=== PATIENT | male | born 1960 | race Caucasian/White ===

== ENCOUNTER → 2020-04-03 11:28 | Outpatient (BNVA) | payer MEDICAID, SELFPAY | PROVIDERS: Visit Provider Emergency Medicine | DX: J98.4 Other disorders of lung (principal); R53.83 Other fatigue; I10 Essential (primary) hypertension; F17.200 Nicotine dependence, unspecified, uncomplicated | CPT/HCPCS: 71046 ==

== ENCOUNTER 2020-04-03 13:16 | Emergency (ER) | payer MEDICAID, SELFPAY ==
[2020-04-03 13:39] VITALS: BP 154/92; PULSE 112; RESP 18; TEMP 37.1; O2SAT 95; BMI 25.8
--- NOTE | 2020-04-03 14:36 | ECG_ITS ---
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 Measurements Intervals [place] Rate: 109 P: 81 UT: 109 QRS: 50 QRSD: 89 T: 57 QT: 307 QTc: 413 Interpretive Statements SINUS TACHYCARDIA WITH SHORT UT INTERVAL MODERATE ST DEPRESSION [0.05+ mV ST DEPRESSION] No previous ECG available for comparison Electronically Signed On 04-03-2020 16:21:47 CDT by Patrick Young M.D. [email or web address] regional hospitalAmcom Softwarepromedica defiance regional hospitalHeadCase Humanufacturing/store/OM/[id number]
--- NOTE | 2020-04-03 14:48 | CTR_ITS ---
PROCEDURE INFORMATION: Exam: CT Angiography Chest With Contrast Exam date and time: 04/03/2020 3:30 PM Age: 59 years old Clinical indication: Abnormal findings; Abnormal radiologic exam of lung or chest; Patient HX: Abn cxr - lethargy - flu like symptoms; Additional info: Abnormal cxr TECHNIQUE: Imaging protocol: Computed tomographic angiography of the chest with intravenous contrast. 3D rendering (Not supervised by radiologist): MIP and/or 3D reconstructed images were created by the technologist. Radiation optimization: All CT scans at this facility use at least one of these dose optimization techniques: automated exposure control; mA and/or kV adjustment per patient size (includes targeted exams where dose is matched to clinical indication); or iterative reconstruction. Contrast material: OMNI 350; Contrast volume: 95 ml; Contrast route: INTRAVENOUS (IV); COMPARISON: CR XR chest 2V* [id number] 04/03/2020 11:39 AM RADIATION DOSE METRICS: Total DLP (mGy-cm): 599.4 FINDINGS: Pulmonary arteries: Normal. No pulmonary emboli. Aorta: Unremarkable. No aortic aneurysm. No aortic dissection. Lungs: There is right lower lobe endobronchial opacification. There is right upper, middle and lower lobe interstitial lung disease. The left lung is clear. Pleural space: There is a small right pleural effusion. No pneumothorax. Heart: Unremarkable. No cardiomegaly. No pericardial effusion. Mediastinal space: There is a right mediastinal mass measuring 9.8 x 4.9 cm. The mass extends to the free carinal and subcarinal mediastinum. There is right thoracic hilar adenopathy measuring approximately 3.9 x 2.5 cm. No associated calcification. Lymph nodes: See Mediastinal space finding. Bones/joints: Unremarkable. No acute fracture. Soft tissues: Unremarkable. CT/CT angio chest PE protcl [id number] IMPRESSION: There is a right mediastinal and right thoracic hilar mass consistent with malignancy. 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 There is a right pleural effusion which may be malignant.If there is desire for further evaluation, a PET scan or biopsy could be performed. Radiation Dose CTDIVOL = (mGy): DLP = 599.4 (mGy-cm)
--- NOTE | 2020-04-03 14:49 | W.ED.CHESTPA ---
HPI - Chest Pain General: Chief Complaint: Chest Pain Stated Complaint: SOB,NOT FEELING WELL Time Seen by Provider: 04/03/20 13:51 History of Present Illness: HPI narrative: 59-year-old male comes in flulike symptoms for the last month lethargic is not been seen during that time initially told me within later in the visit he told me he was seen at the [facility] today and then sent here. I did find a note in the chart he had some sinus tachycardia and there was some question of ST depression so he was sent to the emergency room. He denies any chest pain or tightness. He states this seemed all began about a month ago after he had an infected tooth that was extracted. He denied difficulty breathing is not had any orthopnea no chest pain no abdominal pain no vomiting or diarrhea no cough no rash no recent insect or tick bites. No exposure to anybody with COVID that he knows of after reviewed the chart and found that he had also been tested for COVID at [facility]. He was immediately placed on isolation precautions after this. MD complaint: other (Generalized malaise) Onset (ago): month(s) (1) Timing of current episode: episodic and still present Pain radiation: none Relieving factors: nothing Exacerbating factors: nothing Associated symptoms: Deny abdominal pain, diaphoresis, dyspnea, fever(s), leg edema, nausea, palpitations, sense of impending doom, syncope or vomiting Treatment prior to arrival: none Review of Systems Const: Denies: fever(s) or diaphoresis ENMT: Denies: throat pain, ear or mastoid pain, nasal discharge or nasal congestion Card: Denies: palpitations or syncope Resp: Denies: dyspnea GI: Denies: abdominal pain, nausea or vomiting : Denies: flank pain, dysuria, urinary frequency or urinary urgency Skin/Breast: Denies: rash or pruritus PFS ED PFSH: Medical History HTN (hypertension) Sinus tachycardia Smoking ST segment depression Family History Father CAD (coronary artery disease) Social History (Updated 04/06/20 @ 08:54 by Marquis Ramírez LPN) Smoking and tobacco status: current every day smoker cigarettes Packs smoked per day: 1 Years cigarettes smoked: 25 Quit status (tobacco): considering quitting Second hand smoke exposure: No Smoking risk assessment/counseling performed?: Yes Alcohol intake: never Lives independently: Yes Household members: none Marital status: Current occupational status: retired Current gender identity: Male Physical Exam Const: COMMON NORMALS: no acute distress GENERAL APPEARANCE: cooperative and comfortable ORIENTATION/CONSCIOUSNESS: Yes awake, Yes oriented to person, Yes oriented to place and Yes oriented to time HENMT: COMMON NORMALS: normocephalic, atraumatic, hearing grossly normal bilaterally, external ears normal, moist oral mucous membranes and oropharynx normal HEAD & SCALP: normocephalic and atraumatic EXTERNAL EAR: Yes external ears normal Eye: COMMON NORMALS: Equal, round and reactive pupils present, EOMs intact bilaterally, conjunctivae normal and no scleral icterus CONJUNCTIVA: Yes conjunctivae normal PUPIL: Yes Equal, round and reactive pupils present Neck/C-Spine: COMMON NORMALS: full ROM, no lymphadenopathy, supple and no JVD Resp: COMMON NORMALS: normal respiratory effort, No retractions, No use of accessory muscles and clear to auscultation bilaterally AUSCULTATION: clear to auscultation bilaterally Cardio: COMMON NORMALS: no JVD, regular rate, regular rhythm and No murmurs present (Cardio) RATE: regular rate RHYTHM: regular rhythm GI: COMMON NORMALS: Soft to palpation and No hepatosplenomegaly present AUSCULTATION: Yes normoactive bowel sounds PALPATION: Yes Soft to palpation, No Tenderness to palpation present (GI), No Guarding due to palpation present (GI) and Yes No hepatosplenomegaly present Extremity: COMMON NORMALS: normal to inspection, capillary refill normal, no clubbing, cyanosis or edema, no calf tenderness and no pedal edema Neuro: SENSORIUM/ORIENTATION: Yes oriented to person, Yes oriented to place and Yes oriented to time Skin: COMMON NORMALS: no rashes or lesions noted GENERAL SKIN EXAM: no rashes or lesions noted Course Vital Signs: Vital signs: Vital Signs Temperature 98.7 F 04/03/20 13:39 Pulse Rate 110 H 04/03/20 17:32 Respiratory Rate 15 04/03/20 17:32 Blood Pressure 158/75 04/03/20 17:32 Pulse Oximetry 97 04/03/20 17:32 MDM - Chest Pain MDM Narrative: Medical decision making narrative: Discussion the patient on the CT results the CT is highly suspicious for lung CA with a large mass in the right hilum. Discussed on the findings we will discharge him home with sleep aid additionally he is hypertensive start him on Toprol we will get him set up as soon as possible to see the plate and frame filter operator to get definitive diagnosis of this mass done. Was stressed to the patient that while this was suspicious for cancer there is no way to be certain until it actually biopsied. Lab Data: Labs: Lab Results 04/03/20 04/03/20 04/03/20 Range/Units 15:24 15:24 15:24 WBC 9.5 (4.0-10.0) 10^3/ uL RBC 4.55 (4.1-5.3) 10^6/u L Hgb 14.3 (11.7-16.6) g/dL Hct 43.0 (42.0-52.0) % MCV 94.5 H (80-94) fL MCH 31.4 (28.0-34.0) pg MCHC 33.3 (30.0-36.0) g/dL RDW 12.9 (12.1-15.1) % Plt Count 361 (130-400) 10^3/c mm MPV 9.0 (7.4-10.4) fL Neut % (Auto) 77.0 % Lymph % (Auto) 13.0 % Spink % (Auto) 8.6 % Eos % (Auto) 0.3 % Baso % (Auto) 0.7 % Neut # (Auto) 7.29 (1.8-7.7) 10^3/u L Lymph # (Auto) 1.2 (0.8-4.8) 10^3/u L Spink # (Auto) 0.8 (0.2-0.9) 10^3/u L Eos # (Auto) 0.0 (0.0-0.8) 10^3/u L Baso # (Auto) 0.1 (0.0-0.1) 10^3/u L Nucleated RBC % (a uto) 0 % Nucleated RBCs # 0.0 /100WBC Sodium 136 (136-145) mmol/L Potassium 4.3 (3.5-5.1) mmol/L Chloride 98 (98-107) mmol/L Carbon Dioxide 26 (22-29) mmol/L Anion Gap 16.3 (5-19) BUN 13 (8-23) mg/dL Creatinine 0.8 (0.7-1.2) mg/dL GFR Calculation 98.6 (90-130) mL/min Glucose 109 (65-115) mg/dL Calculated Osmolal ity 279 L (285-295) mOsm/k g Calcium 8.9 (8.5-10.5) mg/dL Total Bilirubin 0.2 (0.15-1.2) mg/dL AST 17 (0-40) U/L ALT 19 (0-41) U/L Alkaline Phosphata se 99 (40-130) IU/L Troponin T Baselin e 10 (0-15) ng/L C-Reactive Protein 50.3 H (0.0-4.9) mg/L Total Protein 7.2 (6.6-8.7) g/dL Albumin 4.2 (3.5-5.2) g/dL Globulin 3.0 (1.3-4.6) g/dL Discharge Plan Discharge Patient Disposition: Home Clinical Impression: Mass of right lung, HTN (hypertension) Condition: Stable Prescriptions: New Toprol XL 25 mg tablet extended release 24 hr 25 mg PO DAILY Qty: 30 RF: 0 Valium 5 mg tablet 5 mg PO .qhs PRN (Reason: prn sleep) Qty: 10 RF: 0 No Action atorvastatin [Lipitor] 20 mg tablet 20 mg PO DAILY Qty: 30 RF: 3 Bevespi Aerosphere 9-4.8 mcg HFA aerosol inhaler 2 puff INHALATION BID Qty: 10.7 RF: 3 Discharge Orders: Discharge Order (Routine); Ordered 04/03/20 Ordered By: Juan Pickett Discharge Diet: Usual diet Discharge Activity: Resume usual activity Activity Restrictions/Additional Instructions: Case management will call with an appointment for 1 of the plate and frame filter operator early next week. Discharge Date/Time: 04/03/20 17:34 Coding Level of Care Code ED Supervisory It Specialist for Yasmanig Fwd Exam Comprehensive
[2020-04-03 15:50] LABS: Basophils # 0.1 10^3/uL (0.0-0.1); Basophils % 0.7 %; Eosinophils % 0.3 %; Hemoglobin 14.3 g/dL (11.7-16.6); Lymphocytes # 1.2 10^3/uL (0.8-4.8); Mean Corpuscular HGB Conc 33.3 g/dL (30.0-36.0); Mean Corpuscular Hemoglobin 31.4 pg (28.0-34.0); Mean Corpuscular Volume 94.5 fL (80-94); Monocytes # 0.8 10^3/uL (0.2-0.9); Monocytes % 8.6 %; Neutrophils # 7.29 10^3/uL (1.8-7.7); Nucleated Red Blood Cells % 0 %; Platelet Count 361 10^3/cmm (130-400); Red Blood Count 4.55 10^6/uL (4.1-5.3); Red Cell Distribution Width 12.9 % (12.1-15.1); White Blood Count 9.5 10^3/uL (4.0-10.0)
[2020-04-03 15:58] LABS: Troponin(5th) Baseline 10 ng/L (0-15)
[2020-04-03 16:02] LABS: Alanine Aminotransferase 19 U/L (0-41); Albumin Level 4.2 g/dL (3.5-5.2); Alkaline Phosphatase 99 IU/L (40-130); Anion Gap 16.3 (5-19); Aspartate Amino Transferase 17 U/L (0-40); Blood Urea Nitrogen 13 mg/dL (8-23); C Reactive Protein 50.3 mg/L (0.0-4.9); Calcium 8.9 mg/dL (8.5-10.5); Carbon Dioxide 26 mmol/L (22-29); Chloride 98 mmol/L (98-107); Glomerular Filtration Rate 98.6 mL/min (90-130); Glucose 109 mg/dL (65-115); Osmolality Calculated 279 mOsm/kg (285-295); Potassium 4.3 mmol/L (3.5-5.1); Sodium 136 mmol/L (136-145); Total Bilirubin 0.2 mg/dL (0.15-1.2); Total Protein 7.2 g/dL (6.6-8.7)
[2020-04-03] MEDS: iohexol 350 mg/mL 100 mL Btl IV (16:28)
[2020-04-03 17:32] VITALS: BP 158/75; PULSE 110; RESP 15; O2SAT 97
--- NOTE | 2020-04-05 10:27 | DCPLANNER ---
manager supply had message to schedule a follow up appointment for patient with [facility], either Dr. Valencia or Dr. Poole. manager supply called [facility], spoke with Ashley. manager supply gave clinic patients information, a follow up appointment is scheduled for Monday, April 06, 2020 at 8:[address] Poole. manager supply called patient with appointment information.
--- NOTE | 2020-04-07 14:38 | DCPLANNER ---
manager pulmonary also had message to schedule a follow up appointment for patient for a echo cardiogram, and a followup with primary care physician. manager pulmonary faxed order to centralized scheduling, will call for appointment information. After echo is scheduled, briefcase sewer will schedule a follow up appointment at the [facility] for patient. manager pulmonary will also send patient the non profit financial controller applications for [facility] to fill out and turn back in.
--- NOTE | 2020-04-09 14:43 | DCPLANNER ---
Patient has a follow up appointment scheduled for April at 10:15. Centralized scheduling will call patient with appointment information. mobile product manager called [facility], patient has a follow up appointment scheduled for Sunday April 26, 2020 at 2:00. Clinic will call patient with appointment information.
--- NOTE | 2020-04-15 08:25 | DCPLANNER ---
Patient had a follow up appointment scheduled for 04.06.20 with [facility] - patient did attend the appointment.
--- NOTE | 2020-05-01 09:12 | DCPLANNER ---
Patient had an echo scheduled and he did not attend the echo. Patient had a followup appointment scheduled for 04.26.20 with primary care physician at [facility] - patient did attend appointment.
== END 2020-04-03 17:34 | disposition home or self-care (01) ==
PROVIDERS: Emergency Provider Family Medicine
DX: J98.4 Other disorders of lung (principal); I10 Essential (primary) hypertension; F17.210 Nicotine dependence, cigarettes, uncomplicated
CPT/HCPCS: 12345; 36415; 71275; 80053; 80061; 83880; 84443; 84484; 85025; 86140; 87635; 93005; 99283; 99284; G0103; Q9967

== ENCOUNTER → 2020-04-12 14:10 | Outpatient (BNVA) | payer OTHER, SELFPAY | PROVIDERS: Visit Provider Internal Medicine Pulmonary Disease | DX: Z20.828 Contact with and (suspected) exposure to other viral communicable diseases (principal) | CPT/HCPCS: 87635 ==

== ENCOUNTER 2020-04-16 05:49 | Day surgery (SDC) | payer MEDICAID, SELFPAY ==
[2020-04-13 08:44] VITALS: BMI 25.8
[2020-04-16] VITALS (8 sets, daily range): BP systolic 110–147; BP diastolic 76–97; PULSE 108–133; RESP 16–20; TEMP 36.8–36.9; O2SAT 92–98
--- NOTE | 2020-04-16 06:06 | ECG_ITS ---
[facility] Test Date: 2020-04-16 Pat Name: Soren Aaron Department: Room: Gender: Male Private Equity Analyst: : 1960 Requested By: Lennie Pradhan Order Number: [id number] Garber MD: George Puente M.D. Measurements Intervals [place] Rate: 125 P: 16 NJ: 108 QRS: 67 QRSD: 81 T: 57 QT: 288 QTc: 415 Interpretive Statements SINUS TACHYCARDIA WITH SHORT [place] INTERVAL Compared to ECG 04/03/2020 15:18:26 ST (T wave) deviation no longer present Electronically Signed On 04-16-2020 16:38:16 CDT by George Puente M.D. [email or web address] good samaritan hospitalnumares GmbH/store/OM/[id number]
--- NOTE | 2020-04-16 06:31 | P.ANESASSM_ITS ---
Pre-Anesthetic Assessment Pre-Anesthetic Assessment: Height/Weight: Height 1.73 m Weight 77.111 kg Temp Pulse Resp BP Pulse Ox 98.5 F 133 H 18 110/90 95 04/16/20 06:26 04/16/20 06:26 04/16/20 06:26 04/16/20 06:26 04/16/20 06:26 Preop Diagnosis: Suspected lung cancer Proposed Procedure: Operation Date: 04/16/20 07:00 Proposed Procedures p Ebus(Not Applicable) - Debra Valencia MD s POSS THORACENTESIS(Not Applicable) - Debra Valencia MD Familial anesthetic complications: No personal hx of anesthesia, no known family problems Was Beta Amanda taken within 24 hours: Yes Last intake: Intake Last Liquid Date 04/15/20 Last Liquid Time 18:00 Last Solid Date 04/15/20 Last Solid Time 18:00 Social: Social History: Tobacco and No alcohol Exam: Pre-Anes Outpt Exam: alert, oriented x 3, clear to auscultation bilaterally and regular rate & rhythm Airway: Cervical ROM: WNL MP: 2 Dentition: Other (missing) Pulmonary: Pulmonary: COPD and Sleep apnea Comments: lung mass (R hilum) CV/HEM: CV/HEM: CHF and HTN Comments: tachycardia asymptomatic ST segment depression on EKG in ER Metabolic: Metabolic: Hyperlipidemia Anesthetic Plan: ASA status: 3 Anesthesia: General Risk of > 500 ml bl ood loss (7ml/kg in children): No PFSH Anesthesia PFSH: Medical History (Updated 04/11/20 @ 00:00 by ) HTN (hypertension) Sinus tachycardia Smoking ST segment depression Family History Father CAD (coronary artery disease) Social History (Updated 04/06/20 @ 08:54 by Marquis Ramírez LPN) Smoking and tobacco status: current every day smoker cigarettes Packs smoked per day: 1 Years cigarettes smoked: 25 Quit status (tobacco): considering quitting Second hand smoke exposure: No Smoking risk assessment/counseling performed?: Yes Alcohol intake: never Lives independently: Yes Household members: none Marital status: Current occupational status: retired Current gender identity: Male Data Anesthesia Cardiac Studies: No Data to Display
--- NOTE | 2020-04-16 06:37 | W.PM.OPSFHP ---
Same Day Surgery H&P Indication for Procedure/HPI DATE OF PROCEDURE: April 16, 2020 CHIEF COMPLAINT/INDICATIONFOR SURGICAL PROCEDURE: Bronchoscopic evaluation for right hilar and mediastinal lung mass. PREOP DIAGNOSIS: Suspected lung cancer PLANNED PROCEDRUE: Bronchoscopy with inspection of the airway, possible endobronchial biopsies, bronchoalveolar lavage, endobronchial sound guided transbronchial needle aspiration of lymph nodes. Operation Date: 04/16/20 07:00 Proposed Procedures p Ebus(Not Applicable) - Debra Valencia MD s POSS THORACENTESIS(Not Applicable) - Debra Valencia MD This is a 59-year-old gentleman who was seen by my colleague in the office on April 06 after he was found to have right mediastinal and hilar mass on a CT scan of the chest on April 03. The patient has an extensive history of smoking and is a current smoker. He was found to be in sinus tachycardia in the office on April 03 and was eventually asked to go to the ED and get evaluated. He underwent a CT angiogram of the chest which revealed significant emphysema. There was no evidence of pulmonary embolism. The patient has a right hilar mass and right mediastinal mass measuring 9.8 x 4.9 cm. He also has right hilar lymphadenopathy and right-sided pleural effusion. There is also concern for lymphangitic spread of the cancer. Medications/Allergies* Allergies/Adverse Reactions Allergy/AdvReac Type Severity Reaction Status Date / Time No Known Allergies Allergy Verified 04/16/20 06:52 Pertinent History/Comorbid Conditions* Medical History (Updated 04/11/20 @ 00:00 by ) HTN (hypertension) Sinus tachycardia Smoking ST segment depression Family History (Updated 04/03/20 @ 12:04 by Iza Baig PATIENT SERVICE TECHNICIAN PST) CAD (coronary artery disease) Father Social History Smoking and tobacco status: current every day smoker cigarettes Packs smoked per day: 1 Years cigarettes smoked: 25 Quit status (tobacco): considering quitting Second hand smoke exposure: No Smoking risk assessment/counseling performed?: Yes Alcohol intake: never Lives independently: Yes Household members: none Marital status: Current occupational status: retired Current gender identity: Male Pertinent Exam Findings alert, oriented x 3, clear to auscultation bilaterally and regular rate & rhythm Recommendations Surgery/Procedure today Coding Level of Care Code Acute Mental Health Program Specialist for Catherine Anna
[2020-04-16] MEDS: midazolam 1 mg/mL INJ 2 mL 2 MG IVP (06:55)
[2020-04-16] MEDS: sodium chloride 0.9% 1,000 ML 30 ML IV (07:00)
[2020-04-16] MEDS: lidocaine 1% INJ 20 mL XX (07:16)
--- NOTE | 2020-04-16 07:49 | SUR.OPER ---
family updated of surgical status
--- NOTE | 2020-04-16 08:16 | PM.OP ---
Operative Report Date of procedure: April 16, 2020 Pre-op Diagnosis: Suspected lung cancer Post-op diagnosis: same Brief History: This is a 59-year-old gentleman with right hilar and mediastinal mass coming in for bronchoscopic evaluation. Procedure: Name of the procedure: Bronchoscopy with inspection of the airway, bronchoalveolar lavage, endobronchial biopsies, endobronchial ultrasound-guided transbronchial needle aspiration of lymph nodes and control of bleeding. Indication: Suspected lung cancer Anesthesia: General anesthesia. Local anesthesia: The livia in the right and left mainstem bronchi were anesthetized with 1% lidocaine, 3 mL. Description of the procedure: The procedure was explained to the patient and the consent was obtained. The patient was brought to the OR. The patient underwent endotracheal intubation for general anesthesia. Following induction of general anesthesia, the bronchoscope was advanced through the ET tube. The lower trachea appeared to be mildly erythematous, no endotracheal lesion was seen. The livia was splayed. The livia, the right and left mainstem bronchi are anesthetized with 1% lidocaine. In a systematic manner bilateral bronchial tree was then examined. The bronchoscope was advanced into the left mainstem bronchus. There was erythema and mucus. The left upper lobe, lingula and left lower lobe bronchi were examined up to the third subsegmental level and no endobronchial abnormalities were identified. The bronchoscope was then introduced into the right mainstem bronchus. The right upper lobe entrance appeared narrowed, the mucosa was irregular in the entrance of the right upper lobe segments. The right middle lobe and right lower lobe bronchi were examined up to the third subsegmental level and no abnormalities were identified. There was mucus throughout the lung. Bronchoalveolar lavage was obtained from the right upper lobe. Endobronchial biopsies were performed from the right upper lobe. Multiple samples are obtained. The endobronchial ultrasound was introduced through the ET tube. Mediastinal and hilar lymphadenopathy was identified with the ultrasound. Transbronchial needle aspiration was performed from 4R, 7 lymph nodes. Samples: 1. Bronchoalveolar lavage specimen was sent for cytology. 2. The endobronchial biopsies are sent for histopathology. 3. The transbronchial needle aspiration of the aforementioned lymph node groups were sent for cytology and histopathology. Complications: There was no immediate complications. The patient was extubated and brought to the PACU in stable condition.
--- NOTE | 2020-04-16 08:33 | SUR.OPER ---
ebus balloon removed intact
--- NOTE | 2020-04-16 09:24 | XR_ITS ---
WS: [id number] Portable AP upright chest, 04/16/2020 Clinical Data: post bronchoscopy Comparison: PA and lateral chest, 04/03/2020. Findings: The right lung shows increased opacity. The right pleural effusion has increased. The left lung remains clear. The heart size is not changed. No pneumothorax is noted. Monitor leads are on the chest wall. XR/XR chest 1V portable [id number] Impression: 1. Increase in right lung opacity with interstitial change throughout which may represent obstructive pneumonia from a right hilar mass. 2. Increase in right pleural effusion.
--- NOTE | 2020-04-16 09:40 | P.OP_ITS ---
Operative Report Date of procedure: April 16, 2020 Right side Thoracentesis Pre-op Diagnosis: Suspected lung cancer Procedure: Pulmonary & Critical Care Medicine Procedure - Thoracentesis Procedure: Thoracentesis Indication: right Pleural effusion Finance Vice President(s): Gil Gutierrez MD Consent: signed and placed in chart Anesthesia: 10 cc 1% lidocaine without epinephrine Description: right pleural effusion was localized using ultrasound guidance and the site was marked accordingly. After chlorhexidine skin prep, area was draped in a sterile manner. 1% lidocaine was used for local anesthesia. Thoracentesis catheter was then inserted into the pleural space with aspiration of 1000 cc of pleural fluid (120 cc sent for labs). Appearance was blood tinged. Ultrasound guidance used:yes to locate the area. EBL: 5 cc Complications: None CXR: no pneumothroax
--- NOTE | 2020-04-16 09:40 | PC.NURSE ---
A THORACENTESIS WAS PERFORMED AT BEDSIDE DURING RECOVERY PHASE II BY DR ADAM. CAROLINA OLIVO RN AND KATLYN HUTTON RN ASSISTED. 900ML OF FLUID REMOVED. SAMPLES SENT TO LAB AND PATHOLOGY. PT TOLERATED WELL.
--- NOTE | 2020-04-16 10:20 | ANE.PACU2 ---
Inpatient post-anesthesia follow up: Airway intact: Yes Vital signs: Temperature 98.2 F Pulse Rate 112 Respiratory Rate 18 Blood Pressure 129/86 Pulse Oximetry 95 Oxygen Delivery Me thod Room Air Oxygen Flow Rate 10 Fraction of Inspir ed Oxygen Hydration adequate: Yes Nausea and vomiting: No Pain level: 1 Mental status: Baseline
[2020-04-16 10:36] LABS: Body Fluid Polynuclear #Cells 0.669; Body Fluid WBC 1893 /uL; Monocytes # Body Fluid 1.224
[2020-04-16 11:29] LABS: Albumin Body Fluid 2.5 g/dL; Cholesterol Body Fluid 101 mg/dL (0-200); LDH Pleural Fluid 2329 U/L; Total Protein Pleural Fluid 4.2 g/dL; Triglycerides, Pleural Fluid 31 mg/dL
[2020-04-16 11:49] LABS: Apprearance, Body Fluid CLEAR; Color, Body Fluid YELLOW; PATH Referral YES
== END 2020-04-16 10:22 | disposition home or self-care (01) ==
PROVIDERS: Internal Medicine Pulmonary Disease; PCP Emergency Medicine; Visit Provider Internal Medicine Critical Care Medicine
PROC: BB4BZZZ Ultrasonography of Pleura (ICD-10-PCS; CPT 32554; principal; 2020-04-16 07:00)
DX: J90 Pleural effusion, not elsewhere classified (principal); J44.9 Chronic obstructive pulmonary disease, unspecified; G47.30 Sleep apnea, unspecified; I11.0 Hypertensive heart disease with heart failure; I50.9 Heart failure, unspecified; E78.5 Hyperlipidemia, unspecified; F17.210 Nicotine dependence, cigarettes, uncomplicated; Z82.49 Family history of ischemic heart disease and other diseases of the circulatory system
CPT/HCPCS: 32554; 12345; 31627; 31628; 71045; 80500; 82042; 82150; 82465; 82945; 83615; 83986; 84157; 84478; 87070; 87075; 87205; 88112; 88305; 89050; 93005; J1100; J2250; J2405; J2704; J2710; J3010; J3490; J7030

== ENCOUNTER 2020-04-20 09:51 | Outpatient (CLI) | payer MEDICAID, SELFPAY ==
--- NOTE | 2020-04-20 09:56 | XRR_ITS ---
PROCEDURE INFORMATION: Exam: XR Chest, 2 Views Exam date and time: 04/20/2020 10:12 AM Age: 59 years old Clinical indication: Shortness of breath; Prior surgery; Surgery type: Lung biopsy 4-6 weeks ago TECHNIQUE: Imaging protocol: XR of the chest Views: 2 views. COMPARISON: CR XR chest 1V portable [id number] 04/16/2020 9:42 AM FINDINGS: Lungs: Severe emphysema. Dense airspace consolidation right lower lobe and to a lesser degree in the right mid lung and upper lobe. Moderate to large right pleural effusion. Pleural space: See Lungs finding. Heart/Mediastinum: Unremarkable. No cardiomegaly. Bones/joints: Unremarkable. XR/XR chest 2V* [id number] IMPRESSION: Dense airspace consolidation right lower lobe and to a lesser degree in the right mid lung and upper lobe. Moderate to large right pleural effusion. Pleural effusion is progressive.
== END 2020-04-20 09:52 | disposition home or self-care (01) ==
LOC: RAD 09:55
PROVIDERS: PCP Emergency Medicine; Visit Provider Internal Medicine Critical Care Medicine
DX: R06.02 Shortness of breath (principal); J90 Pleural effusion, not elsewhere classified
CPT/HCPCS: 71046

== ENCOUNTER → 2020-04-21 09:42 | Outpatient (BNVA) | payer OTHER, SELFPAY | PROVIDERS: PCP Emergency Medicine; Visit Provider Internal Medicine Critical Care Medicine | DX: Z11.59 Encounter for screening for other viral diseases (principal) | CPT/HCPCS: 87635 ==

== ENCOUNTER 2020-04-23 09:15 | Inpatient (IN) | payer MEDICAID, SELFPAY ==
[2020-04-23 10:00] VITALS: BMI 25.5
--- NOTE | 2020-04-23 10:56 | ECG_ITS ---
[facility] Test Date: 2020-04-23 Pat Name: Soren Aaron Department: Room: 104 Gender: Male Flight Radio Officer: : 1960 Requested By: Jessi Vargas Order Number: [id number] Garber MD: Patrick Young M.D. Measurements Intervals [place] Rate: 108 P: 75 MD: 83 QRS: 55 QRSD: 84 T: 60 QT: 316 QTc: 424 Interpretive Statements SINUS TACHYCARDIA WITH SHORT MD INTERVAL ABNORMAL RHYTHM ECG Compared to ECG 04/16/2020 06:15:14 No significant changes Electronically Signed On 04-23-2020 20:40:12 CDT by Patrick Young M.D. [email or web address] [email or web address] Candy/store/[id number]
--- NOTE | 2020-04-23 10:56 | P.HP_ITS ---
Providers/Chief Complaint Admitting Physician: Jessi Vargas DO Primary Care Provider: GÓMEZ Pickens Chief Complaint: Infusion History of Present Illness Soren Aaron is a 59 year old male with a past medical history of CHF, COPD, hypertension and tobacco abuse that presented to the hospital today for direct admission due to recurrent pleural effusion. Patient had a prior thoracentesis last week and has continued to develop worsening effusion. He does have a right-sided lung mass measuring over 4 x 9 cm and is undergoing evaluation for malignancy. He was brought in by pulmonary service today for thoracentesis with plan for pleurodesis. Patient reported that his cough and sputum production has improved since being on the azithromycin and prednisone, reports that he has completed the course of azithromycin. He denies any recent fevers or chills, no exposure to anyone under investigation are positive for COVID-19. His own COVID test returned negative. Patient reports some dyspnea on exertion but at rest he denies any chest pain or shortness of breath. Review of Systems Const: Denies: fever(s) or chills Eyes: Denies: change in vision ENMT: Denies: nasal congestion Card: Reports: dyspnea on exertion; Denies: chest pain, palpitations or edema Resp: Reports: dyspnea and productive cough; Denies: hemoptysis GI: Denies: abdominal pain, nausea, vomiting, diarrhea, constipation, hematochezia or melena : Denies: dysuria or hematuria Musc: Denies: extremity pain or muscle cramps Skin/Breast: Denies: rash or new lesions Neuro: Denies: headache(s) or dizziness Psych: Denies: anxiety or depression Endo: Denies: polyuria or hot flashes Abhishek/Lymph: Denies: easy bruising or easy bleeding Medications/Allergies Home Medications Medication Instructions Recorded Confirmed Last Taken Type metoprolol succinate [Toprol XL] 25 mg PO DAILY #30 tab 04/03/20 04/23/20 04/23/20 06:00 Rx atorvastatin 20 mg tablet 20 mg PO DAILY #30 tab 04/06/20 04/23/20 04/23/20 06:00 Rx glycopyrrolate 9 mcg-formoterol 2 puff INHALATION BID #10.7 gm 04/08/20 04/23/20 1 Day Ago Rx 4.8 mcg HFA aerosol inhaler ~04/15/20 prednisone 20 mg tablet 40 mg PO DAILY 5 Days #10 tab 04/20/20 04/23/20 04/23/20 Rx ibuprofen 400 mg PO Q6H PRN 04/23/20 04/23/20 04/22/20 History Allergies Allergy/AdvReac Type Severity Reaction Status Date / Time No Known Allergies Allergy Verified 04/16/20 06:52 PFSH Acute PFSH: Medical History HTN (hypertension) Sinus tachycardia Smoking ST segment depression Surgical History (Updated 04/23/20 @ 11:08 by Jessi Vargas DO) History of bronchoscopy History of thoracentesis Right, performed on 04/16/2020 Family History Father CAD (coronary artery disease) Social History (Updated 04/23/20 @ 11:01 by Jessi Vargas DO) Smoking and tobacco status: current every day smoker cigarettes Packs smoked per day: 1 Years cigarettes smoked: 25 [ Other cigarette details: Reports he is decreased to 2 to 3 cigarettes/day, previously reported 1 pack/day ] Quit status (tobacco): considering quitting Second hand smoke exposure: No Smoking risk assessment/counseling performed?: Yes Alcohol intake: never Lives independently: Yes Household members: none Marital status: Current occupational status: retired Current gender identity: Male Vitals/I&O/Wt Weight last 48 hrs Weight 76.204 kg Physical Exam Const: COMMON NORMALS: patient oriented x3 and alert GENERAL APPEARANCE: cooperative ORIENTATION/CONSCIOUSNESS: Yes awake, Yes oriented to person, Yes oriented to place and Yes oriented to time HENMT: COMMON NORMALS: normocephalic and atraumatic HEAD & SCALP: normocephalic and atraumatic Eye: COMMON NORMALS: Equal, round and reactive pupils present PUPIL: Yes Equal, round and reactive pupils present Neck/C-Spine: COMMON NORMALS: supple GENERAL: Yes normal visual inspection Resp: AUSCULTATION: no wheezes OTHER: Very mild accessory muscle use, diminished breath sounds on the right chest, no appreciable wheezing or rhonchi Cardio: COMMON NORMALS: regular rhythm and No murmurs present (Cardio) RATE: tachycardic RHYTHM: regular rhythm GI: COMMON NORMALS: Soft to palpation and non-tender INSPECTION: No abdominal distension AUSCULTATION: Yes normoactive bowel sounds PALPATION: Yes Soft to palpation Extremity: COMMON NORMALS: no clubbing, cyanosis or edema and no calf tenderness Neuro: COMMON NORMALS: patient oriented x3, CN's II-XII intact bilaterally, moves all extremities and no focal motor deficits SENSORIUM/ORIENTATION: Yes alert, Yes oriented to person, Yes oriented to place and Yes oriented to time SPEECH: speech normal Psych: COMMON NORMALS: mental status grossly normal and cooperative Skin: COMMON NORMALS: no rashes or lesions noted GENERAL SKIN EXAM: no rashes or lesions noted Data CXR: I personally reviewed and interpreted this imaging study as follows: Radiologist's impression: Chest x-ray from 04/20/2020 FINDINGS: Lungs: Severe emphysema. Dense airspace consolidation right lower lobe and to a lesser degree in the right mid lung and upper lobe. Moderate to large right pleural effusion. Pleural space: See Lungs finding. Heart/Mediastinum: Unremarkable. No cardiomegaly. Bones/joints: Unremarkable. XR/XR chest 2V* [id number] IMPRESSION: Dense airspace consolidation right lower lobe and to a lesser degree in the right mid lung and upper lobe. Moderate to large right pleural effusion. Pleural effusion is progressive. A&P Assessment and plan (1) Recurrent pleural effusion on right: Recurrent pleural effusion on the right with plan for thoracentesis and pleurodesis today by pulmonology. Consultation to Dr. Gutierrez, appreciate recommendations and assistance in patient's care Status: Acute (2) Lung cancer: Status post thoracentesis and bronchoscopy with pathology report showing non-small cell carcinoma, favor adenocarcinoma Will require outpatient oncologic follow-up Status: Acute (3) COPD (chronic obstructive pulmonary disease): Just completed course of azithromycin, currently on prednisone burst treatment Respiratory therapy to assess and treat Oxygen per protocol Status: Acute Qualifiers: COPD type: unspecified COPD Qualified Code(s): J44.9 - Chronic obst ructive pulmonary disease, unspecified (4) HTN (hypertension): Continue home metoprolol Status: Acute (5) Smoking: Strongly encourage cessation Status: Acute (6) Sinus tachycardia: Continue on previously prescribed beta-daniela, continue monitoring on telemetry Status: Acute Additional A&P Information Plan for labs today including CBC, CMP, PT/INR Plan for EKG today due to sinus tachycardia DVT prophylaxis: SCDs, no pharmacologic prophylaxis due to planned procedure today Diet: N.p.o. CODE STATUS: Limited resuscitation, patient reports that he would not want to be on a mechanical ventilator, therefore DO NOT INTUBATE. Attestations Medical Necessity Statement*: Hospitalization due to concern for underlying lung malignancy with recurrent pleural effusion requiring thoracentesis and pleurodesis. 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
[2020-04-23 11:05] LABS: Glucose Point of Care 122 mg/dL (70-110)
[2020-04-23 11:12] VITALS: BP 126/80; PULSE 105; RESP 36; O2SAT 92
[2020-04-23 11:46] LABS: Basophils % 0.2 %; Eosinophils % 0.1 %; Hematocrit 41.4 % (42.0-52.0); Hemoglobin 13.2 g/dL (11.7-16.6); Lymphocytes # 0.5 10^3/uL (0.8-4.8); Lymphocytes % 4.6 %; Mean Corpuscular HGB Conc 31.9 g/dL (30.0-36.0); Mean Corpuscular Hemoglobin 31.1 pg (28.0-34.0); Mean Corpuscular Volume 97.4 fL (80-94); Mean Platelet Volume 8.9 fL (7.4-10.4); Monocytes # 0.5 10^3/uL (0.2-0.9); Monocytes % 4.6 %; Nucleated Red Blood Cells % 0 %; Platelet Count 449 10^3/cmm (130-400); Red Blood Count 4.25 10^6/uL (4.1-5.3); Red Cell Distribution Width 13.1 % (12.1-15.1)
--- NOTE | 2020-04-23 11:49 | PC.NURSE ---
Direct Admit Pt is alert, oriented, SOB noted at rest, mildy anxious. in room. VS taken, IV started on left hand. call light within reach.
[2020-04-23 11:55] VITALS: O2SAT 93
[2020-04-23 12:00] LABS: Alanine Aminotransferase 275 U/L (0-41); Albumin Level 2.9 g/dL (3.5-5.2); Alkaline Phosphatase 362 IU/L (40-130); Anion Gap 16.8 (5-19); Aspartate Amino Transferase 254 U/L (0-40); Blood Urea Nitrogen 16 mg/dL (8-23); Calcium 9.6 mg/dL (8.5-10.5); Carbon Dioxide 26 mmol/L (22-29); Chloride 97 mmol/L (98-107); Globulin 4.2 g/dL (1.3-4.6); Glomerular Filtration Rate 98.6 mL/min (90-130); Glucose 129 mg/dL (65-115); Osmolality Calculated 283 mOsm/kg (285-295); Potassium 4.8 mmol/L (3.5-5.1); Sodium 135 mmol/L (136-145); Total Bilirubin 0.9 mg/dL (0.15-1.2); Total Protein 7.1 g/dL (6.6-8.7)
[2020-04-23] MEDS: morphine 4 mg/mL SDV 1 mL 2 MG IVP (12:40)
--- NOTE | 2020-04-23 12:45 | PC.NURSE ---
Time out for Right-sided Pleurx catheter placement Explained procedure to pt. Consent signed, Pre-medicated with Morphine 2 mg IVP as ordered. Verified pt name and , verified location. Drained approximately 300 out of pleural fluid with pinkish to orange in color. Pt provided reassurance and comfort.
[2020-04-23 12:56] VITALS: BP 155/96; PULSE 114; RESP 18; O2SAT 94
--- NOTE | 2020-04-23 13:00 | PC.NURSE ---
surgical incision on right lower back post pleurx catheter placement. Catheter in place with gauze. no bleeding, hematoma noted. denies pain on the site. spo2 93% on room air.
--- NOTE | 2020-04-23 13:23 | XRR_ITS ---
PROCEDURE INFORMATION: Exam: XR Chest, 1 View Exam date and time: 04/23/2020 1:37 PM Age: 59 years old Clinical indication: Device placement; Other: Thoracentesis; Additional info: Post thoracentesis on right lung TECHNIQUE: Imaging protocol: XR of the chest Views: 1 view. COMPARISON: CR XR chest 2V* [id number] 04/20/2020 10:03 AM FINDINGS: Lungs: Right lower lobe parenchymal densities decreased since prior. The left lung is hyperexpanded consistent with COPD and otherwise clear. Pleural space: Right lower lobe pleural effusion. No pneumothorax. Heart/Mediastinum: Unremarkable. No cardiomegaly. Bones/joints: Unremarkable. XR/XR chest 1V portable [id number] IMPRESSION: 1. Right lower lobe parenchymal densities representing pneumonia decreased since prior 2. Large right lower lobe pleural effusion stable since prior 3. Stable hyperexpanded left lung consistent with COPD
--- NOTE | 2020-04-23 15:30 | P.PCN_ITS ---
Procedure/Consent Time out: Time Out Performed: Yes Consent: Consent for Procedure: Consent obtained from patient Procedure Narrative: Name of the procedure: Right-sided Pleurx catheter placement Anesthesia: Local anesthesia Local: 1% lidocaine 15 mL. Description of the procedure: The patient was placed in left lateral position. Using the ultrasound a safe fluid pocket was identified in the right ninth inte rcostal space in the midaxillary line. The site was marked. The patient was then prepared using sterile technique. 1% lidocaine was used to anesthetize the skin and subcutaneous tissue periosteum and the pleural space was entered. Serosanguineous fluid was aspirated. The introducer needle was then introduced into the pleural space. The guide wire was introduced and left in place. About 6 cm from the initial introduction site in the anterolateral chest wall a second incision was made. The pleural catheter was then tunneled under the skin with the help of a trocar. The initial site was then dilated and the Pleurx catheter was advanced into the pleural space without any difficulty. The incision sites were sutured. There was good hemostasis. 1800 cc of serosanguineous fluid was drained. Complications: None Follow-up: 1. The patient will follow-[facility] Gutierrez 10 days time for removal of sutures. Acute Procedures Epistaxis Control: Time out performed: Yes
--- NOTE | 2020-04-23 17:25 | PC.NURSE ---
Pt stated that he takes atorvastatin in the afternoon and will take it from his home bottles that he brought Instructed pt for his safety that he can't take his own bottles while in the hospital. Pt verbalizes understanding. notified and will change his atorvastatin at bedtime.
[2020-04-23 17:35] VITALS: BP 119/81; PULSE 112; RESP 12; O2SAT 93
[2020-04-23 19:05] VITALS: BP 129/69; PULSE 105; RESP 18; TEMP 36.6; O2SAT 94
[2020-04-23] MEDS: atorvastatin 40 mg Tablet 20 MG PO (20:51)
[2020-04-23] MEDS: HYDROcodone-acetaminophen 5-325 mg Tablet 1 TAB PO (20:51)
[2020-04-23 23:20] VITALS: BP 124/78; PULSE 98; RESP 16; TEMP 36.8; O2SAT 94
[2020-04-24 03:48] VITALS: BP 140/72; PULSE 98; RESP 26; TEMP 36.7; O2SAT 92
[2020-04-24 04:33] LABS: Basophils % 0.2 %; Hematocrit 40.4 % (42.0-52.0); Mean Corpuscular HGB Conc 32.2 g/dL (30.0-36.0); Mean Corpuscular Hemoglobin 30.7 pg (28.0-34.0); Mean Corpuscular Volume 95.3 fL (80-94); Mean Platelet Volume 9.4 fL (7.4-10.4); Monocytes # 1.1 10^3/uL (0.2-0.9); Monocytes % 8.8 %; Neutrophils # 10.24 10^3/uL (1.8-7.7); Neutrophils % 82.4 %; Nucleated Red Blood Cells % 0 %; Platelet Count 466 10^3/cmm (130-400); Red Blood Count 4.24 10^6/uL (4.1-5.3); Red Cell Distribution Width 13.1 % (12.1-15.1); White Blood Count 12.4 10^3/uL (4.0-10.0)
[2020-04-24 05:12] LABS: Anion Gap 13.2 (5-19); Blood Urea Nitrogen 23 mg/dL (8-23); Calcium 9.4 mg/dL (8.5-10.5); Carbon Dioxide 27 mmol/L (22-29); Chloride 98 mmol/L (98-107); Glucose 128 mg/dL (65-115); Osmolality Calculated 283 mOsm/kg (285-295); Potassium 4.2 mmol/L (3.5-5.1); Sodium 134 mmol/L (136-145)
--- NOTE | 2020-04-24 07:00 | USCV_ITS ---
Preh, Soren Age: 59 Gender: M : 1960 Exam Date: 04/24/2020 07:19 Ordering Phys: Jessi Vargas DO Technologist: Aure Sanchez Exam Location: [facility] [place]_ Indication: Recurrent pleural effusions, dypsnea on exertion BP: 140 / 72 HR: 97 Rhythm: Sinus Technical Quality: Suboptimal MEASUREMENTS (Male / Female) Normal Values 2D ECHO LV Diastolic Diameter PLAX 4.6 cm 4.2 - 5.9 / 3.9 - 5.3 cm LV Systolic Diameter PLAX 3.5 cm LV Chamber Size 3.3 cm IVS Diastolic Thickness 0.9 cm 0.6 - 1.0 / 0.6 - 0.9 cm IVS Systolic Thickness 1.1 cm LVPW Diastolic Thickness 0.8 cm 0.6 - 1.0 / 0.6 - 0.9 cm LVPW Systolic Thickness 1.2 cm RV Chamber Size 1.8 cm LVOT Diameter 2.0 cm LV Ejection Fraction 2D Teich 47.5 % LV Ejection Fraction MOD 2C 43.7 % LV Ejection Fraction 2C AL 46.1 % LA Diameter 3.3 cm LA Width 3.0 cm LA Height 4.1 cm RA Width 2.2 cm RA Height 3.6 cm Aorta at Sinotubular Diameter 2.1 cm M-MODE LV Diastolic Diameter MM 5.0 cm 4.2 - 5.9 / 3.9 - 5.3 cm LV Systolic Diameter MM 3.8 cm LV Ejection Fraction MM Teich 48.0 % IVS Diastolic Thickness MM 1.4 cm 0.6 - 1.0 / 0.6 - 0.9 cm IVS Systolic Thickness MM 1.5 cm LVPW Diastolic Thickness MM 0.9 cm 0.6 - 1.0 / 0.6 - 0.9 cm LVPW Systolic Thickness MM 1.1 cm RV Diastolic Diameter MM 1.1 cm Aortic Annulus Diameter 3.1 cm LA Ao Ratio MM 1.1 MV E Point Septal Separation 1.4 cm DOPPLER AV Peak Velocity 130.0 cm/s LVOT Peak Velocity 83.0 cm/s AV Area Cont Eq vti 2.2 cm squared AV Area Cont Eq pk 2.1 cm squared MV Area PHT 4.6 cm squared Mitral E to A Ratio 0.8 MV E' Velocity 38.0 cm/s Mitral E to MV E' Ratio 8.4 Mitral E to LV E' Lateral Ratio 7.1 Mitral E to LV E' Septal Ratio 10.2 TV Peak E Velocity 52.0 cm/s Right Atrial Pressure 3.0 mmHg FINDINGS Left Ventricle Limited quality echocardiogram. Normal left ventricular size and wall thickness. LV systolic function is borderline low and is 45 to 50%. Borderline global hypokinesis. Normal left ventricular wall thickness. Grade 1 diastolic dysfunction is noted. Right Ventricle The right ventricle is normal in size and function. Right Atrium The right atrium is normal in size. Left Atrium The left atrium is normal in size. Mitral Valve Structurally normal mitral valve without significant stenosis or prolapse. There is trace mitral regurgitation. Aortic Valve Not well visualized however there is no significant or stenosis. There is no aortic regurgitation. Tricuspid Valve Structurally normal tricuspid valve without significant stenosis or regurgitation. Insufficient TR jet to calculate RVSP. Pulmonic Valve Not well visualized. There is no pulmonic regurgitation. Pericardium Normal pericardium without effusion. Aorta Normal ascending aorta dimension. CONCLUSIONS This is technically limited study. LV systolic function is borderline low with EF of 45 to 50%. Grade 1 diastolic dysfunction is noted. No comparison studies are available. George Puente MD (Electronically Signed) Final Date: 24 April 2020 11:39 S
[2020-04-24 08:00] VITALS: BP 126/84; PULSE 108; RESP 20; TEMP 36.7; O2SAT 95
--- NOTE | 2020-04-24 08:11 | CTR_ITS ---
PROCEDURE INFORMATION: Exam: CT Chest Without Contrast Exam date and time: 04/24/2020 8:12 AM Age: 59 years old Clinical indication: Device placement; Chest tube; Prior surgery; Additional info: Followup chest tube TECHNIQUE: Imaging protocol: Computed tomography of the chest without contrast. Radiation optimization: All CT scans at this facility use at least one of these dose optimization techniques: automated exposure control; mA and/or kV adjustment per patient size (includes targeted exams where dose is matched to clinical indication); or iterative reconstruction. COMPARISON: CT angio chest PE protcl [id number] 04/03/2020 4:15 PM RADIATION DOSE METRICS: Total DLP (mGy-cm): 589.29 FINDINGS: Tubes, catheters and devices: Pleural drain coils between the right lower lobe base and diaphragm. Moderate volume pleural effusion, majority of fluid subpulmonic, with a posterior dependent component as well. Minimal air within the pleural space. There is complete collapse of the basilar segments of the right lower lobe with partial collapse of the superior segment. Patchy interstitial and alveolar opacities within the upper lobe and middle lobe, with diffuse irregular interstitial thickening throughout the right lung favored at least in part related to lymphangitic spread of tumor. The right upper, middle, and lower lobe bronchi are narrowed by hilar/mediastinal mass but with improved aeration compared to prior. No focal consolidation or mass within the left lung. Paraseptal and centrilobular emphysema again noted. No left effusion. Small soft tissue emphysema right lower lateral chest wall at chest tube insertion site. Lungs: See Tubes, catheters and devices finding. Pleural space: See Tubes, catheters and devices finding. Heart: Small pericardial effusion. Heart normal in size. Aorta: No thoracic aortic aneurysm. Lymph nodes: No significant interval change in bulky right hilar and mediastinal mass/confluency adenopathy. Evaluation somewhat limited on non-contrast CT. Liver: No new abnormality seen within the included upper abdomen. Unchanged subcentimeter hepatic hypodensity anterior left lobe on image 57 series 2. Bones/joints: No acute or aggressive osseous lesion. Soft tissues: Unremarkable. CT/CT chest wo con [id number] IMPRESSION: 1. Postsurgical changes in the right hemithorax with pleural drain in place and moderate volume pleural effusion, primarily sub pulmonic. 2. Complete collapse of the right lower lobe basilar segments in part due to pleural effusion but with superimposed pneumonia not excluded. Patchy interstitial and alveolar opacities throughout the right upper and middle lobes as well, with diffuse irregular interstitial thickening on the right probably related to lymphangitic spread of tumor. 3. No significant interval change large right mediastinal/hilar mass and adenopathy. Radiation Dose CTDIVOL = (mGy): DLP = 589.29 (mGy-cm)
[2020-04-24] MEDS: metoprolol succinate ER (24 HR) 25 mg Tablet PO (09:10)
[2020-04-24] MEDS: predniSONE 20 mg Tablet 40 MG PO (09:10)
--- NOTE | 2020-04-24 11:32 | PC.CHAP ---
Pastoral Care Encounter/Spiritual Assessment Type of Contact [] Declined parquet floor layer's helper visit [] Patient/Family/Request visit [] Outpatient visit [] Follow-up visit [] Physician referral [] Code/Alert [X] Routine visit [] Staff referral [] Actively dying [] Patient sleeping [] Family support [] [] Out of room [] Palliative care [] [] Receiving care in room [] Pre-surgical visit [] Trauma [] Long length of stay [] ICU visit [] Other: Relational/Emotional Strength [] Patient feels connected with others/family/visitors/staff [] Distress [] Loneliness/isolation [] Abandonment Spirituality of Patient [] Person of Camila [] Attends Alevism of their Camila [] Believes in Prayer [] Reads Bible or Nondenominational materials [] There are Spiritual issues to be addressed Senior Ux Designer Interventions [] Prayer [] Active listening [] Non-anxious presence [] Spiritual/emotional support [] Crisis/trauma care [] Spiritual counseling [] Bereavement support [] Provided bereavement packet [] Provided Bible/devotional materials [] Provided toy/stuffed animal, coloring book to patient or family member [] Provided Communion [] Anointing/[place] [] Salvation [] Completed spiritual assessment [] Other: Impact on Illness or Injury [] Angry [] Fearful [] Anxious [] Often cries [] Exhaustion [] Unable to work [] Unable to attend moravian [] Unable to walk/stand [] Unable to read [] Unable to drive [] Unable to eat/drink [] Unable to sleep [] Unable to be with family [] Patient intubated [] Other: Summary Time spent with patient
[2020-04-24 12:00] VITALS: BP 137/76; PULSE 110; RESP 18; TEMP 36.7; O2SAT 96
--- NOTE | 2020-04-24 12:31 | PM.DCS ---
Discharge Providers Date of Admission: 04/23/20 09:15 Date of Discharge: April 24, 2020 Attending Provider at Admission: Jessi Vargas DO Attending Provider at Discharge: Marco A Biggs MD Primary Care Provider: GÓMEZ Pickens Diagnoses at Discharge Discharge Diagnosis (1) Recurrent pleural effusion on right: Status: Acute (2) Lung cancer: Status: Acute (3) COPD (chronic obstructive pulmonary disease): Status: Acute Qualifiers: COPD type: unspecified COPD Qualified Code(s): J44.9 - Chronic obstructive pulmonary disease, unspecified (4) HTN (hypertension): Status: Acute (5) Smoking: Status: Acute (6) Sinus tachycardia: Status: Acute Reason for Visit Reason for Visit: Infusion Hospital Course Hospital Course: Soren is a 59-year-old white male who presented with a right pleural effusion, with recent diagnosis of non-small cell cancer, poorly differentiated. Pulmonary wanted the patient admitted, for possible pleurodesis. Upon further evaluation of the patient, it was thought a Pleurx catheter placement was a better option. This was placed April 23, without complications. 1800 cc was obtained originally. The following day the patient was doing well, saturating 95% on room air. The plan was to train him in catheter care, and await his daughter's arrival prior to performing removal of further fluid. He will then be on a schedule of removing fluid every other day, until follow-up with pulmonary clinic in the next 7 days. He will also follow-up with oncology regarding his new malignancy diagnosis. Echocardiogram was also done while in-house, demonstrating an EF of 45 to 50%. No pericardial effusion was noted. At pulmonary's request of repeat CT chest was done prior to discharge demonstrating continued collapse right lower lobe, pleural drain, still with moderate pleural effusion. Subcentimeter hepatic hypodensity also seen on this image. Liver function tests were also noted to be elevated while in the hospital so his statin will be discontinued and repeat liver function tests upon follow-up should be obtained. Physical Exam Narrative: EXAM NARRATIVE: General exam is no apparent distress Cardiovascular borderline tachycardia without murmur Lungs diminished breath sounds right lung, left clear Abdomen is soft with positive bowel sounds Extremities no cyanosis clubbing or edema Discharge Data Data Completed and Pending: Completed Studies During Hospitalization Category Date Time Status CT chest con 7 1250 Routine Cat Scan 04/24/20 08:11 Completed XR chest 1V ceci ble [id number] Stat Exams 04/23/20 13:23 Completed CV echo complete* [id number] Routine Ultrasound 04/24/20 07:00 Completed Labs from last 24 hours 04/24/20 04/24/20 03:49 03:49 WBC 12.4 H RBC 4.24 Hgb 13.0 Hct 40.4 L MCV 95.3 H MCH 30.7 MCHC 32.2 RDW 13.1 Plt Count 466 H MPV 9.4 Neut % (Auto) 82.4 Lymph % (Auto) 8.0 [place] % (Auto) 8.8 Eos % (Auto) 0.0 Baso % (Auto) 0.2 Neut # (Auto) 10.24 H Lymph # (Auto) 1.0 [place] # (Auto) 1.1 H Eos # (Auto) 0.0 Baso # (Auto) 0.0 Nucleated RBC % (a uto) 0 Nucleated RBCs # 0.0 Sodium 134 L Potassium 4.2 Chloride 98 Carbon Dioxide 27 Anion Gap 13.2 BUN 23 Creatinine 0.7 GFR Calculation 115.0 Glucose 128 H Calculated Osmolal ity 283 L Calcium 9.4 Vitals: Last Vital Signs Temp 98.0 F 04/24/20 08:00 Pulse 108 H 04/24/20 08:00 Resp 20 H 04/24/20 08:00 BP 126/84 04/24/20 08:00 Pulse Ox 95 04/24/20 08:00 Discharge Plan Discharge Patient Disposition: Home Condition: Stable Prescriptions: Continued Bevespi Aerosphere 9-4.8 mcg HFA aerosol inhaler 2 puff INHALATION BID Qty: 10.7 RF: 3 prednisone 20 mg tablet 40 mg PO DAILY 5 Days Qty: 10 RF: 0 metoprolol succinate [Toprol XL] 25 mg tablet extended release 24 hr 25 mg PO DAILY Qty: 30 RF: 0 ibuprofen 400 mg Tablet 400 mg PO Q6H PRN (Reason: headache) RF: 0 Discontinued atorvastatin [Lipitor] 20 mg tablet 20 mg PO DAILY Qty: 30 RF: 3 Discharge Orders: Discharge Order (Routine); Ordered 04/24/20 Ordered By: Marco A Biggs Referrals: Datar,Gil Leo MD [Physician] - 7-10 days (Keep follow-up that is already scheduled later this month, in approximately 7 days CMP on follow-up, for recheck of liver function tests after discontinuation of statin) Discharge Diet: Cardiac Discharge Activity: Increase activity as tolerated Activity Restrictions/Additional Instructions: Please arrange for oncology follow-up secondary to cancer, non-small cell, poorly differentiated Drains chest tube, every other day per instructions given by nursing Keep follow-up with pulmonary Discharge Attestations Time Spent in Discharge Care*: greater than 30 min Quality Metrics Clinical Quality Measures During this hospital stay, did patient experience: None Coding Level of Care Code Acute Waste Chopper for Catherine Fwd Diagnoses Recurrent pleural effusion on right J90 Lung cancer C34.90 COPD (chronic obstructive pulmonary disease) J44.9 COPD type: unspecified COPD HTN (hypertension) I10 Smoking F17.200 Sinus tachycardia R00.0
[2020-04-24 13:59] VITALS: BP 147/88; PULSE 108; RESP 18; TEMP 36.4; O2SAT 98
[2020-04-24 14:02] VITALS: BP 147/88; PULSE 108; RESP 18; TEMP 36.4; O2SAT 98
--- NOTE | 2020-04-24 14:46 | PC.NURSE ---
Addendum entered by Sendy French RN 04/25/20 10:41: PLEUR-X CONTAINERS PROVIDED TO PATIENT ALONG WITH EDUCATION. AMOUNT DRAINED AT TIME OF EDUCATION WAS 350ML SEROSANGUINOUS DRAINAGE. Original Note: EDUCATION PROVIDED TO PATIENT'S DAUGHTER USING THE VACCUTAINER FOR THE PATIENT'S PLEURAL DRAIN. ALL QUESTIONS ANSWERED. VACCUTAINERS PROVIDED FOR PATIENT. CONTACT LINE PROVIDED FOR ANY ADDITIONAL QUESTIONS THAT MAY ARISE AT HOME.
--- NOTE | 2020-04-26 15:09 | PC.RESP ---
Smoking Cessation information sent to patient.
== END 2020-04-24 15:13 | disposition home or self-care (01) | DRG 187 ==
PROVIDERS: Admitting Provider Family Medicine; PCP Emergency Medicine; Visit Provider Internal Medicine
DX: J90 Pleural effusion, not elsewhere classified (principal); C34.90 Malignant neoplasm of unspecified part of unspecified bronchus or lung; J44.9 Chronic obstructive pulmonary disease, unspecified; R00.0 Tachycardia, unspecified; F17.210 Nicotine dependence, cigarettes, uncomplicated; I11.0 Hypertensive heart disease with heart failure; I50.9 Heart failure, unspecified; Z20.828 Contact with and (suspected) exposure to other viral communicable diseases
CPT/HCPCS: 12345; 36415; 36416; 71045; 71250; 80048; 80053; 82962; 85025; 85610; 93005; 93306; 94664; C1729; J2270; J7512

== ENCOUNTER 2020-04-28 09:52 | Outpatient (CLI) | payer MEDICAID, SELFPAY ==
[2020-04-28 12:57] LABS: Basophils # 0.1 10^3/uL (0.0-0.1); Basophils % 0.6 %; Eosinophils # 0.1 10^3/uL (0.0-0.8); Eosinophils % 0.8 %; Hematocrit 42.2 % (42.0-52.0); Hemoglobin 13.1 g/dL (11.7-16.6); Lymphocytes # 1.5 10^3/uL (0.8-4.8); Lymphocytes % 9.9 %; Mean Corpuscular Hemoglobin 30.5 pg (28.0-34.0); Mean Corpuscular Volume 98.4 fL (80-94); Mean Platelet Volume 9.2 fL (7.4-10.4); Monocytes # 1.2 10^3/uL (0.2-0.9); Monocytes % 7.7 %; Nucleated Red Blood Cells % 0 %; Platelet Count 546 10^3/cmm (130-400); Red Blood Count 4.29 10^6/uL (4.1-5.3); Red Cell Distribution Width 13.9 % (12.1-15.1); White Blood Count 15.4 10^3/uL (4.0-10.0)
[2020-04-28 13:31] LABS: Alanine Aminotransferase 80 U/L (0-41); Albumin Level 3.2 g/dL (3.5-5.2); Alkaline Phosphatase 256 IU/L (40-130); Anion Gap 19.1 (5-19); Aspartate Amino Transferase 25 U/L (0-40); Blood Urea Nitrogen 12 mg/dL (8-23); Calcium 9.5 mg/dL (8.5-10.5); Carbon Dioxide 26 mmol/L (22-29); Chloride 96 mmol/L (98-107); Globulin 3.9 g/dL (1.3-4.6); Glucose 101 mg/dL (65-115); Osmolality Calculated 284 mOsm/kg (285-295); Potassium 4.1 mmol/L (3.5-5.1); Sodium 137 mmol/L (136-145); Total Bilirubin 0.4 mg/dL (0.15-1.2); Total Protein 7.1 g/dL (6.6-8.7)
--- NOTE | 2020-04-28 14:34 | ONC CON_ITS ---
Dr. Ferguson New Patient Note Patient: Soren Aaron Unit #: [id number]: 1960 Dicatated By: Topher Ferguson M.D.Date of Visit: Apr 28, 2020 Onc MED New Patient/Consult Referring Physician: Gil Gutierrez History of Present Illness: Mr. Soren Aaron, is a 59-year-old gentleman, who was in his usual health until about couple of months prior to diagnosis when he started feeling weak and fatigued, finally on April 03, 2020 he went to [place] [facility] where chest x-ray was done which showed right-sided pneumonia subsequently on on April 03, 2020 he underwent CTA angios chest PE protocol which showed right hilar and mediastinal mass, and right pleural effusion, patient was referred to pulmonology and underwent bronchoscopy on April 16, 2020 bronchoalveolar lavage was performed along with transbronchial needle aspiration from 4R and 7 lymph nodes and pathology confirmed right upper lobe endobronchial biopsy shows non-small cell carcinoma favor adenocarcinoma, lymph node station 7 biopsy showed non-small cell carcinoma again favor mid adenocarcinoma, similarly biopsy from 4-R showed malignancy favor metastatic adenocarcinoma, immunohistochemistry stains were consistent with non-small cell cell carcinoma favoring adenocarcinoma and immunohistochemistry staining pattern is also suggestive of an adenocarcinoma, as tumor cells are positive for CK7 and but negative for CK20 and p63. The fact that Napsin and TTF-1 are negative, as per pathology there is a possibility of different primary site other than lung was mentioned and clinical correlation was suggested. Patient denies any jaundice, denies any melena or hematochezia, denies any urinary signs symptom patient denies any hemoptysis or hematemesis Patient has history of 25+ years history of smoking and still smoking about half pack a day. Denies any history of alcohol use. Patient never had colonoscopy or EGD. Patient denies any weight loss denies any hematuria or fresh blood per rectum. Denies any bony pains. But occasionally headaches. No lightheadedness no dizziness. No fever or chills. Patient recently underwent right thoracentesis and on April 23, 2020 Pleurx catheter was placed in right chest Past Medical History: Mr. Aaron'chau medical history consists of chronic obstructive pulmonary disease, hypertension, recurrent right pleural effusion, and sinus tachycardia. Past Surgical History: Mr. Aaron's surgical/procedural history consists of bronchoscopy and right thoracentesis. Medications: Bevespi Aerosphere 1 Puff(s) (of 9-4.8 mcg/act) Aerosol Inhalation b.i.d., diazePAM 1 Tablet (of 5 mg) Oral at bedtime PRN, Metoprolol Succinate ER 1 Tablet (of 25 mg) Tablet SR 24 HR Oral daily Allergies: No Known Allergies. Social History: Mr. Aaron is single. He is a daily smoker who has smoked 1.0 pack/day for 25 years. He has no history of drinking. Family History: Mr. Aaron's father at age 86: coronary artery disease, and prostate cancer. Review Of Symptoms: Constitutional - Appetite is good and weight is stable. No fever, night sweats, or hot flashes. Energy level is poor, ENMT - No sinus congestion/drainage. No mouth sores. No sore throat or difficulty swallowing, Hematologic/Lymphatic - No abnormal bruising or bleeding, Respiratory - Occasional shortness of breath. Positive for cough. No pleuritic pain or hemoptysis, Cardiovascular - No angina pain. No palpitations, Gastrointestinal - No nausea or vomiting. No heartburn or acid reflux. No diarrhea or constipation. No blood in the stool or black stools, Genitourinary (M) - No dysuria or hematuria. No urinary frequency. No urgency or incontinence, Musculoskeletal - No joint or bone pain, Neurologic - No headache or dizziness. No numbness or tingling. No other focal neurologic symptoms, Psychiatric - No anxiety or depression. No insomnia. Vital Signs: Most recent vitals are not available for this patient. Performance Status: 1 - No physically strenuous activity, but ambulatory and able to carry out light or sedentary work (e.g. office work, light house work). (ECOG) Physical Examination: ENMT - No mouth sores, no thrush, no jaundice, Respiratory - Decreased breath sound at right base and right lung, but left lung clear, Cardiovascular - Regular rate and rhythm of heart, Abdomen - Soft, bowel sounds present, Extremities - No visible edema. Lab/Imaging: Most recent lab results are not available for this patient. Impression: Non-small cell carcinoma, favor adenocarcinoma per right upper lobe endobronchial biopsy/transbronchial biopsy of station 4R and 7 done on April 16, 2020 immunohistochemistry staining pattern is suggestive of adenocarcinoma as tumor cells are positive for CK7 but negative for CK20 and p63. And there were also negative for Napsin and TTF-1, due to that pathologist entertained the possibility of a different primary site other than lung, clinical correlation was recommended. CT scan of the chest done on April 23, 2020 showed postsurgical changes in the right hemithorax with Pleurx drain in place and moderate volume pleural effusion. Complete collapse of right lower lobe basilar segment due to pleural effusion. Patchy interstitial and alveolar opacities throughout the right upper and middle lobe as well with diffuse irregular interstitial thickening on the right probably due to lymphangitic spread of the tumor. No significant interval change large right mediastinal/hilar mass and adenopathy. COPD Chronic smoking 25+ years still active. Plan: Discussed with patient regarding his disease status and treatment options and pathology report, as per pathology report immunohistochemistry stains favor adenocarcinoma but Napsin and TTF-1 stains were negative, as per pathologist there is a possibility of different primary site of the lung should be evaluated. In that case, we will consider tumor markers, CEA , CA 19???9 and PSA and also consider CT PET scan to look for other possible primary sites and as patient is symptomatic due to headaches will consider MRI scan of the head to rule out brain mets. And also refer him to surgery for Port-A-Cath placement, while patient undergoing above-mentioned work-up will refer him to radiation oncology for evaluation. If above-mentioned work-up remained inconclusive and PET scan Confirms intrathoracic disease only, may consider combined chemoradiation otherwise plan accordingly. Patient return to clinic after MRI scan of the head and CT PET scan Signed By: Topher Ferguson M.D. <<Signature on File>>
[2020-04-28 14:41] LABS: Cancer Antigen 19 9 190.2 U/mL (0-35); Carcinoembryonic Antigen 480.1 ng/mL (0.0-4.7)
== END 2020-04-28 09:53 | disposition home or self-care (01) ==
PROVIDERS: PCP Family Medicine; Visit Provider Internal Medicine Hematology & Oncology
DX: C80.1 Malignant (primary) neoplasm, unspecified (principal); C76.8 Malignant neoplasm of other specified ill-defined sites; C77.1 Secondary and unspecified malignant neoplasm of intrathoracic lymph nodes; F17.210 Nicotine dependence, cigarettes, uncomplicated; J44.9 Chronic obstructive pulmonary disease, unspecified; I10 Essential (primary) hypertension; J90 Pleural effusion, not elsewhere classified
CPT/HCPCS: 80053; 82378; 84153; 85025; 86301; 99203

== ENCOUNTER 2020-05-17 05:46 | Outpatient (RCR) | payer MEDICAID, SELFPAY ==
--- NOTE | 2020-05-06 12:37 | N.ONRAD NP_ITS ---
Radiation Oncology New Patient Visit Patient: Soren Aaron MR#: [id number] : 1960> Age: 59> Sex: Male> Dictated by: Dr. Lukas Rubio Date of Service: 05/05/2020 Referring Physician(s) : Dr. Gutierrez Diagnosis: Metastatic adenocarcinoma of unknown primary. The primary is likely lung versus an alternative origin. Purpose of Visit: Discuss the role of radiotherapy with curative intent. History of Present Illness: The patient is a 59-year-old male who presented in March 2020 with malaise, fatigue, and dyspnea on exertion. Subsequent plain films of the chest and CT angio (04/03/2020) revealed a right hilar mass and right mediastinal adenopathy concerning for malignancy. 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 A right pleural effusion was also noted along with a solitary subcentimeter hypodense lesion within the left lobe of the liver which is too small to characterize. The patient then underwent a bronchoscopy, endobronchial biopsy of the right upper lobe mass, biopsy of lymph nodes at station 4R and 7, and thoracentesis (04/16/2020). Pathology from the right upper lobe mass, lymph node station 4R and 7, revealed metastatic non-small cell carcinoma, favoring metastatic adenocarcinoma. Furthermore, pleural fluid analysis revealed findings which were highly suspicious for malignant infiltration . Pathology second opinion by Juan José revealed that the malignancy is highly suspicious for epithelial non-small cell malignancy favoring a poorly differentiated adenocarcinoma The patient has met with Dr. Ferguson. Given the fact that pathology did not confirm a lung primary, coupled with an elevated CEA of 480.1, an elevated CA 19-9 of 190.2, and an alk phos of 256, consideration for alternative primary sources of malignancy were entertained. Dr. Ferguson subsequently ordered an MRI of the brain this coming Sunday, a PET/CT this coming Sunday, and a colonoscopy this coming Sunday. In consultation today, the patient reports that he is breathing well but still has mild/moderate dyspnea on exertion. He reports no hemoptysis, no blood flecked sputum, no headaches, seizures, or numbness/weakness. His breathing improves with pleurocentesis. Imaging Review: I reviewed the radiographic images discussed above. Current Medications: Bevespi Aerosphere, diazePAM, metoprolol Succinate ER. Allergies: No Known Allergies Medical History: - Chronic obstructive pulmonary disease, - hypertension, - recurrent right pleural effusion, - sinus tachycardia. No history of collagen vascular disease. No previous radiation therapy. Surgical History: Bronchoscopy and right thoracentesis. Family History: Father is at age 86 having experienced coronary artery disease, and prostate cancer. Social History: Last screened on 04/27/2020 - Current every day smoker 1.0 pack/day for 25 years (25 pack years). Last screened on 04/27/2020 - Never drank. Current Complaints / Review of Systems: Constitutional - Complains of mild fatigue. Complains of night sweats which occur occasionally. Denies lack of appetite, fever and change in weight. Eyes - Denies double vision. ENMT - Denies dysphagia, ear pain, mouth dryness, stomatitis, altered taste and tinnitus. Neck - Denies neck pain. Integumentary - Denies rash. Cardiovascular - Denies arrhythmias, chest pain and edema. Respiratory - Complains of a mild cough which is productive off and on. Complains of dyspnea associated with normal activity. Complains of wheezing. Denies hemoptysis. Gastrointestinal - Denies abdominal pain, constipation, diarrhea, heartburn / dyspepsia, melena / GI bleeding, nausea and vomiting. Genitourinary (M) - Complains of nocturia 1-3 times/night. Denies dysuria, frequency and urgency. Musculoskeletal - Denies bone pain, joint pain and muscle weakness. Neurologic - Complains of headaches which has a mild one daily which started about 4 weeks ago. Denies dizziness and abnormal gait. Endocrine - Denies diabetes and thyroid disease. Hematologic/Lymphatic - Denies tender or enlarged lymph nodes.. Physical Exam: GENERAL:??? The patient is alert, and in no acute distress. HEENT:??? Head is normocephalic. Face is symmetric. External ocular movements are intact. Sclera and conjunctivae are non erythematous. NECK:??? Trachea is midline.??? Thyroid is not enlarged by palpation.??? LYMPH NODES:??? There is no cervical or supraclavicular adenopathy bilaterally. LUNGS:??? Clear to auscultation bilaterally. Respiratory movement is unlabored. HEART:??? Regular rate and rhythm. EXTREMITIES:??? No deformities. NEUROLOGIC:??? Gait and station are normal.??? The patient is well coordinated and strength is equal bilaterally. SLURRY BLENDER:??? Cranial nerves II-XII are intact and without focal deficits.??? Psych: Affect is normal. Skin: Cursory review of the skin reveals no obvious lesions concerning for malignancy. Performance Status: 1 - No physically strenuous activity, but ambulatory and able to carry out light or sedentary work (e.g. office work, light house work). (ECOG) Pathology: Primary, c76.8 - malignant neoplasm of other specified ill-defined sites, Diagnosed 04/28/2020 (active). Impression: The patient is a 59-year-old male with metastatic non-small cell carcinoma (favoring adenocarcinoma) most likely of a right lung primary. Given the findings of the pleural fluid analysis being highly suspicious of malignant infiltration , in my opinion, this is metastatic disease until proven otherwise. The patient has an indwelling pleural fluid catheter, and the patient's daughter shares that she continues to drain fluid on a daily basis. MRI of the brain, PET/CT, and colonoscopy is pending for additional work-up to assist in conclusively finding a primary malignant source. Final treatment recommendations for radiation therapy will be shared once the additional work-up is complete. I have asked the patient to come back and see me next Sunday. Thoughts of systemic therapy followed by radiation therapy as needed are currently being entertained, but a formal recommendation for or against radiation therapy will not be given until work-up has been completed. I recommend considering comprehensive molecular testing and PD-L1 testing to further guide treatment recommendations. The patient also asked for prognosis, and I have deferred answering this until work-up is complete. Signed by: 05/06/2020 12:38:39 PM <<Signature on File>> Time spent with patient: CPT Code: CPT Code:
--- NOTE | 2020-05-07 09:23 | MR_ITS ---
WS: [id number] MRI BRAIN WITH AND WITHOUT CONTRAST HISTORY: PERSISTENT Headache; lung CA COMPARISON: None available. TECHNIQUE: Multiplanar imaging performed through the brain with Prohance 17 ml's IV. Small acute subcortical lacunar infarct RIGHT occipital lobe. There is in the additional tiny lacunar infarct in the RIGHT parietal centrum semiovale ovale. These infarcts are a different arterial distr ibutions. There are scattered T2 and FLAIR signal hyperintensities in subcortical white matter above the tentor ium. No hemorrhage. Ventricles and extra-axial spaces are normal. Clivus and pituitary gland are normal. Visualized posterior fossa and brainstem are also normal. No enhancing masses are identified. Possible filling defect or thrombus in the distal RIGHT vertebral artery seen on the postcontrast imaging. Image 149 of series 11. Additional small filling defect in the RIGHT cavernous carotid artery seen best on image 6 of series 13. Dural venous sinuses are normal. Paranasal sinuses: Well aerated with no significant disease. Mastoid air cells: Normal. Calvarium and scalp: Normal. MR/MR head wo/w con [id number] IMPRESSION: 1. Tiny acute lacunar infarcts in the RIGHT occipital and RIGHT parietal lobes . Different arterial distributions suggests an embolic source. 2. Mild chronic microvascular ischemic disease. 3. No enhancing metastatic lesions. 4. Possible incomplete filling defect in the distal RIGHT vertebral artery and distal RIGHT carotid artery seen on the postcontrast imaging. Indeterminate fo r incomplete thrombus or partial occlusion. May need further evaluation with ca rotid CT angiography. Notified Topher Ferguson MD at 05/07/2020 12:11 PM.
--- NOTE | 2020-05-12 19:14 | ONCRAD EPV_ITS ---
Radiation Oncology Established Patient Visit Patient: Agnieszka Doty [id number] : 1960> Age: 59> Sex: Male> Dictated by: Dr. Lukas Rubio Date of Service: 05/12/2020 Referring Physician(s) : Diagnosis: Metastatic non-small cell carcinoma (favoring adenocarcinoma) most likely of a right lung primary. The patient has disease burden including a 5.1 x 3.4 cm right lower lobe mass, interstitial thickening throughout the right lung consistent with carcinomatosis, extensive malignant soft tissue implants, extensive malignant bilateral mediastinal adenopathy, FDG avid bilateral cervical level 4 lymph nodes, FDG avidity in the right supraclavicular & right level 5 lymph nodes, and a 9 mm subcutaneous implant overlying the left paraspinal muscles at L4. Current History: The patient is seen today in follow-up and he reports progressive shortness of breath. We reviewed the results of the most recent PET/CT (05/08/2020) as well as the MRI of the brain (05/07/2020). In summary, there was no metastatic intracranial disease. However, the PET/CT scan revealed disease burden which includes a 5.1 x 3.4 cm right lower lobe mass, interstitial thickening throughout the right lung consistent with carcinomatosis, extensive malignant soft tissue implants, extensive malignant bilateral mediastinal adenopathy, bilateral cervical level 4 lymph nodes, right supraclavicular lymph nodes, right level 5 adenopathy, and a 9 mm subcutaneous implant overlying the left paraspinal muscles at L4. Current Medications: Ambien, bevespi Aerosphere, metoprolol Succinate ER. Allergies: No Known Allergies Current Complaints / Review of Systems: Constitutional - Complains of moderate fatigue. 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 Denies lack of appetite, fever and change in weight. Eyes - Denies blurred vision and double vision. Occasionally has floating white specks in the right eye. ENMT - Denies dysphagia, ear pain, mouth dryness, stomatitis and altered taste. Neck - Denies neck pain. Integumentary - Denies rash. Cardiovascular - Denies arrhythmias, chest pain and edema. Respiratory - Complains of cough occasionally. Complains of severe dyspnea associated with normal activity. Complains of mild wheezing. Denies hemoptysis. Gastrointestinal - Denies abdominal pain, constipation, diarrhea, heartburn / dyspepsia, melena / GI bleeding, nausea and vomiting. Genitourinary (M) - Complains of nocturia gets up about 2 to 3 times per night. Denies dysuria, frequency and urgency. Musculoskeletal - Denies bone pain, joint pain and muscle weakness. Neurologic - Complains of mild headaches occurring in the mid / late afternoon. Denies dizziness and abnormal gait. Endocrine - Denies diabetes and thyroid disease. Hematologic/Lymphatic - Denies tender or enlarged lymph nodes.. Vital Signs: Performed on 05/12/2020 11:16 AM BMI - 24.632 kg/m2 (high), Height - 68.00 in, Weight - 162.0 lbs, Temperature - 97.1 f, Pulse - 124, Respiration - 20, O2 Sat - 92 % (low), Pain - 0 and BP - 120/ 84 mm(hg). Physical Exam: General: Alert and oriented x 3. No acute distress. HEENT: Normocephalic, atraumatic. Extraocular Movements Intact: Pupils Equal, Round, Reactive to Light and Accommodation: Sclerae anicteric. Oral cavity is clear without lesions, masses or ulcers. NECK: Supple without supraclavicular or jugular lymphadenopathy. LUNGS: Clear to auscultation bilaterally without rales, rhonchi or wheeze. HEART: Regular rate and rhythm, normal S1 and S2 without murmur, gallop or rub. MUSCULOSKELETAL: No tenderness or percussion pain over the axial skeleton, scapulae or pelvis. ABDOMEN: Soft, nontender, nondistended without masses or organomegaly. Bowell sounds are present. EXTREMITIES: No peripheral edema is identified. Limited motor and sensory examination are grossly intact and symmetric bilaterally. NEUROLOGIC: Cranial nerves II ???XII are grossly intact. Normal sensation, strength 5/5 in all extremities, normal gait, no ataxia. Performance Status: 2 - Ambulatory/capable of all self-care, unable to perform any work activities. Up and about more than 50% of waking hours. (ECOG) Lab: None pending. Pathology: Primary, c76.8 - malignant neoplasm of other specified ill-defined sites, Diagnosed 04/28/2020 (active). Impression: The patient is a 59-year-old male with metastatic non-small cell carcinoma (favoring adenocarcinoma) most likely of a right lung primary (per personal clinical assessment). Dr. Ferguson has requested a colonoscopy to rule out a colon primary in light of pathologic ambiguity coupled with elevations in CEA, CA 19-9, etc. The patient has disease burden which includes a 5.1 x 3.4 cm right lower lobe mass, interstitial thickening throughout the right lung consistent with carcinomatosis, extensive malignant soft tissue implants, extensive malignant bilateral mediastinal adenopathy, FDG avid bilateral cervical level 4 lymph nodes, FDG avidity in the right supraclavicular & right level 5 lymph nodes, and a 9 mm subcutaneous implant overlying the left paraspinal muscles at L4. A recent MRI of the brain revealed no evidence of intracranial metastasis. Given the patient's progressive shortness of breath, I recommend considering palliative radiation therapy to the lung to a total dose of 30 Gy in 10 fractions followed by systemic therapy as deemed appropriate by Dr. Ferguson. We will begin treatment planning on Sunday or Sunday following consensus agreement with Dr. Ferguson to begin palliative radiation therapy. The patient asked if it was necessary to undergo colonoscopy, and I deferred this question to Dr. Ferguson. I explained to the patient, that since his primary treatment will be systemic therapy, we should do everything that Dr. Ferguson desires to do in order to have confidence in the pathology. This will enable Dr. Ferguson to appropriately tailor his treatment. Signed by: 05/12/2020 7:12:49 PM <<Signature on File>> Time spent with patient: CPT Code: CPT Code:
--- NOTE | 2020-05-14 12:21 | ONC FU_ITS ---
Dr. Ferguson follow up note Patient: Soren Aaron Unit #: [id number]: [id number] Dicatated By: Topher Ferguson M.D.Date of Visit:May 14, 2020 Onc Med Follow-up/Prog Note History of Present Illness: Mr. Soren Aaron, is a 59-year-old gentleman, who was in his usual health until about couple of months prior to diagnosis when he started feeling weak and fatigued, finally on April 03, 2020 he went to [place] [facility] where chest x-ray was done which showed right-sided pneumonia subsequently on on April 03, 2020 he underwent CTA angios chest PE protocol which showed right hilar and mediastinal mass, and right pleural effusion, patient was referred to pulmonology and underwent bronchoscopy on April 16, 2020 bronchoalveolar lavage was performed along with transbronchial needle aspiration from 4R and 7 lymph nodes and pathology confirmed right upper lobe endobronchial biopsy shows non-small cell carcinoma favor adenocarcinoma, lymph node station 7 biopsy showed non-small cell carcinoma again favor mid adenocarcinoma, similarly biopsy from 4-R showed malignancy favor metastatic adenocarcinoma, immunohistochemistry stains were consistent with non-small cell cell carcinoma favoring adenocarcinoma and immunohistochemistry staining pattern is also suggestive of an adenocarcinoma, as tumor cells are positive for CK7 and but negative for CK20 and p63. The fact that Napsin and TTF-1 are negative, as per pathology there is a possibility of different primary site other than lung was mentioned and clinical correlation was suggested. Patient denies any jaundice, denies any melena or hematochezia, denies any urinary signs symptom patient denies any hemoptysis or hematemesis Patient has history of 25+ years history of smoking and still smoking about half pack a day. Denies any history of alcohol use. Patient never had colonoscopy or EGD. Patient denies any weight loss denies any hematuria or fresh blood per rectum. Denies any bony pains. But occasionally headaches. No lightheadedness no dizziness. No fever or chills. Patient recently underwent right thoracentesis and on April 23, 2020 Pleurx catheter was placed in right chest CT PET scan was done on May 08, 2020 showed 5.1 x 3.4 cm right lower lobe mass with SUV of 36.4. Interstitial thickening throughout the right lung is FDG positive, consistent with carcinomatosis. Pleural activity indicate extensive malignant soft tissue implants. Extensive malignant mediastinal lymphadenopathy is present in prevascular, right and left paratracheal, subcarinal territories. With SUV of 42.3 in the subcarinal node. Outside the thorax, FDG positive nodes are seen in bilateral cervical level 4, right supraclavicular, right posterior triangle in the head or neck. In the abdomen, FDG positive nodes are present in the gastrohepatic ligament, retrocaval, peripancreatic territories. Subcutaneous implant overlying the left paraspinal muscle at L4 level measuring 9 mm with SUV of 9.7. His CEA was 480, CA 19???9 was 190.2, PSA 2.1 MRI scan of the head done on May 07, 2020 showed no evidence of metastatic disease but tiny acute lacunar infarct in the right occipital and right parietal lobes. Different arterial distribution suggesting embolic source. Possible incomplete filling defect in the distal right vertebral artery and distal right carotid artery seen on the postcontrast imaging. Indeterminate for incomplete thrombosis or partial occlusion. CTA carotid was recommended and ordered Came for follow-up, planing of mild shortness of breath with exertion and also slowing down of fluid drainage from right Pleurx. But no fever chills, no nausea or vomiting, no diarrhea or constipation, no headaches blurred vision or double vision, no hemoptysis or hematemesis. He has seen radiation oncology and has follow-up appointment on Sunday for further discussion. Medications: Ambien 1 Tablet (of 10 mg) Tablet Oral at bedtime, Bevespi Aerosphere 1 Puff(s) (of 9-4.8 mcg/act) Aerosol Inhalation b.i.d., Metoprolol Succinate ER 1 Tablet (of 25 mg) Tablet SR 24 HR Oral daily Allergies: No Known Allergies. Review of Systems: Review of Systems is not available for this patient. Vital Signs: Performed on May 14, 2020 09:31 Height - 68.00 in Weight - 163.2 lbs (HIGH) BSA - 1.87 sq.m BMI - 24.81 Temperature - 97.0 F (LOW) Pulse - 117 /min (HIGH) Respiration - 24 /min BP - 121/68 mm(hg) O2 Sat - 95 % (LOW) Pain - 0 Performance Status: 1 - No physically strenuous activity, but ambulatory and able to carry out light or sedentary work (e.g. office work, light house work). (ECOG) Physical Examination: ENMT - No mouth sores, no thrush, no jaundice, Respiratory - Decreased breath sound at right base otherwise clear, Cardiovascular - Regular rate and rhythm of heart, Abdomen - Soft, bowel sounds Present, Extremities - No visible edema. Lab/Imaging: Most recent lab results are not available for this patient. Impression: Metastatic carcinoma most likely adeno, as per CT PET scan done on May 08, 2020 extensive central lymphadenopathy including mediastinal/intra-abdominal and right cervical/supraclavicular and right pleural carcinomatosis and extensive pleural involvement favor adenocarcinoma per right upper lobe endobronchial biopsy/transbronchial biopsy of station 4R and 7 done on April 16, 2020 immunohistochemistry staining pattern is suggestive of adenocarcinoma as tumor cells are positive for CK7 but negative for CK20 and p63. And there were also negative for Napsin and TTF-1, due to that pathologist entertained the possibility of a different primary site other than lung, clinical correlation was recommended. CT scan of the chest done on April 23, 2020 showed postsurgical changes in the right hemithorax with Pleurx drain in place and moderate volume pleural effusion. Complete collapse of right lower lobe basilar segment due to pleural effusion. Patchy interstitial and alveolar opacities throughout the right upper and middle lobe as well with diffuse irregular interstitial thickening on the right probably due to lymphangitic spread of the tumor. No significant interval change large right mediastinal/hilar mass and adenopathy. COPD Chronic smoking 25+ years still active. Plan: Discussed with the patient regarding his CT PET scan report as well as MRI scan of the head which was done recently there is no evidence of brain mets. But CT PET scan showed extensive disease involving the right lung and with the pleural studding and carcinomatosis in the right lung. Also showed extensive mediastinal lymphadenopathy upper abdominal lymphadenopathy as well as right cervical/supraclavicular lymphadenopathy, his tumor marker CEA was 480 and CA 19???9 was 190. Case was discussed with pathologist now with CT PET scan findings as well as elevated tumor markers, molecular testing including EGFR, ROS1, HER-2/philippe status, PD-L1 was ordered. And patient return to clinic in 2 weeks, hopefully by that time will have these reports back and will discuss per treatment planning. Patient is scheduled see radiation oncology on Sunday. On MRI scan of the brain there was incidental finding of possible incomplete filling defect in the distal right vertebral artery and distal right carotid artery seen on postcontrast imaging, radiology recommended carotid CT angiography, which was ordered. And also shows tiny acute lacunar infarct in the right occipital and right parietal lobes.^In the meantime patient is scheduled to see , marketing/sales person regarding his right Pleurx functioning / pleural effusion] Signed By: Topher Ferguson M.D. <<Signature on File>>
--- NOTE | 2020-05-17 | CT_ITS ---
Radiation Therapy Planning CT images; total exam DLP: 853.76 mGy-cm MTDD
[2020-06-03 08:20] LABS: BRAF V600E (BBPL) See Report; HER2 FISH/IHC (Non-Gastric) See Report
[2020-06-03 08:21] LABS: PD-L1 (Clone 22C3) by IHC BBPL See Report
== END 2020-05-22 23:59 | disposition home or self-care (01) ==
LOC: ONCMED 05:46
PROVIDERS: PCP Family Medicine; Visit Provider Radiology Radiation Oncology
DX: C78.01 Secondary malignant neoplasm of right lung (principal); C77.8 Secondary and unspecified malignant neoplasm of lymph nodes of multiple regions; C78.2 Secondary malignant neoplasm of pleura; C76.8 Malignant neoplasm of other specified ill-defined sites; C80.1 Malignant (primary) neoplasm, unspecified; R97.0 Elevated carcinoembryonic antigen [CEA]; R74.8 Abnormal levels of other serum enzymes; J44.9 Chronic obstructive pulmonary disease, unspecified; I10 Essential (primary) hypertension; F17.210 Nicotine dependence, cigarettes, uncomplicated
CPT/HCPCS: 70553; 77300; 77301; 77334; 77338; 81210; 88104; 88342; 99214; 99215; A9579

== ENCOUNTER 2020-05-31 05:37 | Outpatient (RCR) | payer MEDICAID, SELFPAY ==
--- NOTE | 2020-05-24 11:05 | CT_ITS ---
WS: [id number] CTA NECK TECHNIQUE: Contrast enhanced CTA of the neck with coronal and sagittal reformatted images and maximum intensity projection (MIP) images. NASCET criteria utilized. CLINICAL INFORMATION: MALIGNANT NEOPLASM COMPARISON: CT chest April 24, 2020 10 MRI May 07, 2020 DLP: 2184.[address] scans at [facility] use at least one of these dose optimization techniques: automat ed exposure control; mA and/or kV adjustment per patient size (includes targeted exams where dose is matched to clinical indication); or iterative reconstruction. FINDINGS: Tiny hypoplastic right vertebral artery which mainly ends in the posterior inferior cerebe llar artery. Normal left vertebral artery which is patent to the basilar junction. Diffuse interstitial and airspace opacities in right upper lobe some of which is likely due to lympha ngitic carcinomatosis. Diffuse pleural thickening most likely represents metastatic pleural disease. Partially visualized conglomerate adenopathy in the mediastinum. Enlarged bilateral cervical and righ t greater than left supraclavicular and posterior triangle lymph nodes also seen on the recent PET/CT . Partially visualized emphysematous changes. RIGHT: Right common carotid artery is patent. Significant stenosis right proximal ICA with irregular atheromatous disease measuring 75-80%. Long segment stenosis extends over approximately 1.5 cm with c entral filling defect and peripheral flow likely due to chronic thrombus. Stenosis begins approximate ly 1.4 cm distal to the bifurcation Right ICA is patent to the skull base. Cavernous carotid calcific ation. LEFT: Left common carotid artery is patent. Left ICA stenosis measuring 35-40%. Left ICA is patent to the skull base. Cavernous carotid calcification. Mastoid air cells are well aerated. Normal caliber thoracic aorta partially visualized. Mild spondyli tic changes cervical spine. CT/CT angio neck 42676 IMPRESSION: 1. Tiny hypoplastic right vertebral artery which ends in the posterior inferio r cerebellar artery. Normal caliber and patent left vertebral artery. Proximal basilar artery is patent. 2. Significant stenosis right proximal ICA with irregular atheromatous disease and 75-80% stenosis extending over approximately 1.5 cm. Stenosis begins appro ximately 1.4 cm distal to the bifurcation 3. Left ICA stenosis measuring approximately 35-40% 4. Diffuse interstitial and airspace infiltrates with pleural thickening and p leural fluid in the partially visualized right upper lobe consistent with known malignancy. 5. Diffuse masslike low-attenuation necrotic appearing lymphadenopathy in the partially visualized right hilum and supra hilum extending into the mediastinum . 6. Multiple enlarged right greater than left supra clavicular posterior triang le and right greater than left cervical lymph nodes.
[2020-05-24] MEDS: iohexol 350 mg/mL 100 mL Btl IV (11:43)
[2020-05-24 13:00] LABS: Basophils # 0.1 10^3/uL (0.0-0.1); Basophils % 0.4 %; Eosinophils % 0.1 %; Hematocrit 38.6 % (42.0-52.0); Hemoglobin 12.2 g/dL (11.7-16.6); Lymphocytes # 1.1 10^3/uL (0.8-4.8); Lymphocytes % 8.4 %; Mean Corpuscular HGB Conc 31.6 g/dL (30.0-36.0); Mean Corpuscular Volume 94.8 fL (80-94); Mean Platelet Volume 9.4 fL (7.4-10.4); Monocytes # 0.9 10^3/uL (0.2-0.9); Monocytes % 7.1 %; Neutrophils # 10.47 10^3/uL (1.8-7.7); Neutrophils % 83.7 %; Nucleated Red Blood Cells % 0 %; Platelet Count 447 10^3/cmm (130-400); Red Blood Count 4.07 10^6/uL (4.1-5.3); Red Cell Distribution Width 14.6 % (12.1-15.1); White Blood Count 12.5 10^3/uL (4.0-10.0)
[2020-05-24 13:22] LABS: Alanine Aminotransferase 16 U/L (0-41); Albumin Level 3.1 g/dL (3.5-5.2); Alkaline Phosphatase 129 IU/L (40-130); Anion Gap 20.6 (5-19); Aspartate Amino Transferase 21 U/L (0-40); Blood Urea Nitrogen 16 mg/dL (8-23); Calcium 9.4 mg/dL (8.5-10.5); Carbon Dioxide 28 mmol/L (22-29); Chloride 90 mmol/L (98-107); Globulin 3.8 g/dL (1.3-4.6); Glomerular Filtration Rate 137.4 mL/min (90-130); Glucose 110 mg/dL (65-115); Osmolality Calculated 280 mOsm/kg (285-295); Potassium 4.6 mmol/L (3.5-5.1); Sodium 134 mmol/L (136-145); Total Bilirubin 0.4 mg/dL (0.15-1.2); Total Protein 6.9 g/dL (6.6-8.7)
--- NOTE | 2020-05-24 15:35 | ONC FU_ITS ---
Dr. Ferguson follow up note Patient: Soren Aaron < Unit #: [id number]: 1960 Dicatated By: Topher Ferguson M.D.Date of Visit:May 24, 2020 Onc Med Follow-up/Prog Note History of Present Illness: Mr. Soren Aaron, is a 59-year-old gentleman, who was in his usual health until about couple of months prior to diagnosis when he started feeling weak and fatigued, finally on April 03, 2020 he went to [place] [facility] where chest x-ray was done which showed right-sided pneumonia subsequently on on April 03, 2020 he underwent CTA angios chest PE protocol which showed right hilar and mediastinal mass, and right pleural effusion, patient was referred to pulmonology and underwent bronchoscopy on April 16, 2020 bronchoalveolar lavage was performed along with transbronchial needle aspiration from 4R and 7 lymph nodes and pathology confirmed right upper lobe endobronchial biopsy shows non-small cell carcinoma favor adenocarcinoma, lymph node station 7 biopsy showed non-small cell carcinoma again favor mid adenocarcinoma, similarly biopsy from 4-R showed malignancy favor metastatic adenocarcinoma, immunohistochemistry stains were consistent with non-small cell cell carcinoma favoring adenocarcinoma and immunohistochemistry staining pattern is also suggestive of an adenocarcinoma, as tumor cells are positive for CK7 and but negative for CK20 and p63. The fact that Napsin and TTF-1 are negative, as per pathology there is a possibility of different primary site other than lung was mentioned and clinical correlation was suggested. Patient denies any jaundice, denies any melena or hematochezia, denies any urinary signs symptom patient denies any hemoptysis or hematemesis Patient has history of 25+ years history of smoking and still smoking about half pack a day. Denies any history of alcohol use. Patient never had colonoscopy or EGD. Patient denies any weight loss denies any hematuria or fresh blood per rectum. Denies any bony pains. But occasionally headaches. No lightheadedness no dizziness. No fever or chills. Patient recently underwent right thoracentesis and on April 23, 2020 Pleurx catheter was placed in right chest CT PET scan was done on May 08, 2020 showed 5.1 x 3.4 cm right lower lobe mass with SUV of 36.4. Interstitial thickening throughout the right lung is FDG positive, consistent with carcinomatosis. Pleural activity indicate extensive malignant soft tissue implants. Extensive malignant mediastinal lymphadenopathy is present in prevascular, right and left paratracheal, subcarinal territories. With SUV of 42.3 in the subcarinal node. Outside the thorax, FDG positive nodes are seen in bilateral cervical level 4, right supraclavicular, right posterior triangle in the head or neck. In the abdomen, FDG positive nodes are present in the gastrohepatic ligament, retrocaval, peripancreatic territories. Subcutaneous implant overlying the left paraspinal muscle at L4 level measuring 9 mm with SUV of 9.7. His CEA was 480, CA 19???9 was 190.2, PSA 2.1 MRI scan of the head done on May 07, 2020 showed no evidence of metastatic disease but tiny acute lacunar infarct in the right occipital and right parietal lobes. Different arterial distribution suggesting embolic source. Possible incomplete filling defect in the distal right vertebral artery and distal right carotid artery seen on the postcontrast imaging. Indeterminate for incomplete thrombosis or partial occlusion. CTA carotid was recommended and ordered Which was done on May 24, 2020 showed tiny hypoplastic right vertebral artery which ends in the posterior inferior cerebellar artery. Normal caliber and patent left vertebral artery. Significant stenosis right proximal ICA with irregular atheromatous disease and 75 to 80% stenosis extending over approximately 1.5 cm Left ICA stenosis measuring approximately 35 to 40% Patient continued to have progressive shortness of breath for which she was seen by pulmonology and as per patient further thoracentesis would not help and Pleurx is not draining much either, because of progressive shortness of breath he was referred to radiation oncology who has started him on palliative radiation therapy to right lung to relieve external compression on the lower bronchus, which may improve his shortness of breath. And radiation was started on May 24, 2020 for 10 doses. Came for follow-up, denies any specific complaint except dyspnea on exertion but no hemoptysis or hematemesis, no fever chills, no nausea or vomiting, no diarrhea or constipation, patient has seen radiation oncology and palliative radiation therapy to right lung was started this morning and patient will receive 10 doses. Medications: Ambien 1 Tablet (of 10 mg) Tablet Oral at bedtime, Bevespi Aerosphere 1 Puff(s) (of 9-4.8 mcg/act) Aerosol Inhalation b.i.d., Metoprolol Succinate ER 1 Tablet (of 25 mg) Tablet SR 24 HR Oral daily Allergies: No Known Allergies. Review of Systems: Constitutional - Appetite is good and weight is stable. No fever, night sweats, or hot flashes. Energy level is poor, ENMT - No sinus congestion/drainage. No mouth sores. No sore throat or difficulty swallowing, Hematologic/Lymphatic - No abnormal bruising or bleeding, Respiratory - Occasional shortness of breath. Positive for cough. No pleuritic pain or hemoptysis, Cardiovascular - No angina pain. No palpitations, Gastrointestinal - No nausea or vomiting. No heartburn or acid reflux. No diarrhea or constipation. No blood in the stool or black stools, Genitourinary (M) - No dysuria or hematuria. No urinary frequency. No urgency or incontinence, Musculoskeletal - No joint or bone pain, Neurologic - No headache or dizziness. No numbness or tingling. No other focal neurologic symptoms, Psychiatric - No anxiety or depression. No insomnia. Vital Signs: Performed on May 24, 2020 13:35 Height - 68.00 in Weight - 159.0 lbs (LOW) BSA - 1.85 sq.m BMI - 24.18 Temperature - 97.2 F (LOW) Pulse - 145 /min (HIGH) Respiration - 16 /min BP - 139/73 mm(hg) O2 Sat - 93 % (LOW) Pain - 0 Performance Status: 2 - Ambulatory/capable of all self-care, unable to perform any work activities. Up and about more than 50% of waking hours. (ECOG) Physical Examination: ENMT - No mouth sores, no thrush, no jaundice, Respiratory - No breath sounds right lower lung base few mid lung crackles on the right otherwise clear to auscultation, Cardiovascular - Regular rate and rhythm of heart, Abdomen - Soft, bowel sounds present, Extremities - No visible edema. Lab/Imaging: Test performed on Apr 28, 2020 12:25 Sodium 137 mmol/L Potassium 4.1 mmol/L Chloride 96 mmol/L CO2 26 mmol/L Anion Gap 19.1 BUN 12 mg/dL Creatinine 0.7 mg/dL Cr Clearance (Est) 117.50 mL/min eGFR 115.0 mL/min Glucose 101 mg/dL Osmolality - Calculated 284 mOsm/kg Calcium 9.5 mg/dL Protein, Total 7.1 g/dL Albumin 3.2 g/dL Globulin 3.9 g/dL Bilirubin, Total 0.4 mg/dL ALT (SGPT) 80 U/L AST (SGOT) 25 U/L Alkaline Phosphatase 256 IU/L WBC 15.4 10 3/uL RBC 4.29 10 6/uL HGB 13.1 g/dL HCT 42.2 % MCV 98.4 fL MCH 30.5 pg MCHC 31.0 g/dL RDW 13.9 % Platelet Count 546 10 3/cmm MPV 9.2 fL Neutrophils 12.30 10 3/uL Lymphocytes 1.5 10 3/uL Monocytes 1.2 10 3/uL Eosinophils 0.1 10 3/uL Basophils 0.1 10 3/uL Neutrophil % 80.0 % Lymphocyte % 9.9 % Monocyte % 7.7 % Eosinophil % 0.8 % Basophils % 0.6 % NRBC % 0 % CA 19-9 190.2 U/mL CEA 480.1 ng/mL PSA 2.150 ng/mL Impression: Metastatic carcinoma most likely adeno, as per CT PET scan done on May 08, 2020 extensive central lymphadenopathy including mediastinal/intra-abdominal and right cervical/supraclavicular and right pleural carcinomatosis and extensive pleural involvement favor adenocarcinoma per right upper lobe endobronchial biopsy/transbronchial biopsy of station 4R and 7 done on April 16, 2020 immunohistochemistry staining pattern is suggestive of adenocarcinoma as tumor cells are positive for CK7 but negative for CK20 and p63. And there were also negative for Napsin and TTF-1, due to that pathologist entertained the possibility of a different primary site other than lung, clinical correlation was recommended.PD-L1 less than 1%, HER-2/philippe negative, BRAF was not done because of no viable tumor seen in the specimen .Started on palliative radiation therapy to right lung but notes of breath on May 24, 2020 as there was not much pleural fluid seen for palliative thoracentesis. CT scan of the chest done on April 23, 2020 showed postsurgical changes in the right hemithorax with Pleurx drain in place and moderate volume pleural effusion. Complete collapse of right lower lobe basilar segment due to pleural effusion. Patchy interstitial and alveolar opacities throughout the right upper and middle lobe as well with diffuse irregular interstitial thickening on the right probably due to lymphangitic spread of the tumor. No significant interval change large right mediastinal/hilar mass and adenopathy. COPD Chronic smoking 25+ years still active. Plan: Discussed with patient regarding his labs white blood count 12.5 hemoglobin 12.2 hematocrit 38.6 platelets 447,000 CMP within normal limits And CT neck which shows significance right proximal ICA and left ICA. Clinically, patient is doing reasonably well with no significant new complaints except persistent dyspnea on exertion, now being started on palliative radiation therapy as there is not much fluid for thoracentesis and patient was symptomatic due to progressive dyspnea on exertion. His case was discussed with pathologist last week and it was concluded that he has lung cancer, which can present with high CEA level and mild to moderate elevated CA 19???9 was of unknown significance. Molecular studies were ordered and his PD-L1 status came back negative being less than 1% although Keytruda in combination with carboplatin/Taxol can be considered in case his EGFR, or ALK, ROS1 which is pending comes back negative. Or depending upon his performance status in 2 weeks, may consider palliative chemotherapy alone with weekly carboplatin/Taxol or carbo/Alimta., HER-2/philippe was also negative. Next patient will return to clinic in 2 weeks, by that time will finish palliative dose of radiation therapy to right lung and hopefully will have his EGFR/ALK/ROS1 reports back to discuss about his palliative therapy, BRAF report shows unable to interpret due to no tumor cells present in the specimen. Signed By: Topher Ferguson M.D. <<Signature on File>>
--- NOTE | 2020-05-25 12:00 | ONCRAD TMN_ITS ---
Radiation Oncology Weekly Treatment Management Patient: Agnieszka Doty MR#: [id number] : 1960 Age: 59 Sex: Male Dictated by: Dr. Lukas Rubio Date of Service: 05/25/2020 Referring Physician(s) : Diagnosis: Metastatic non-small cell carcinoma (favoring adenocarcinoma) most likely of a right lung primary. The patient has disease burden including a 5.1 x 3.4 cm right lower lobe mass, interstitial thickening throughout the right lung consistent with carcinomatosis, extensive malignant soft tissue implants, extensive malignant bilateral mediastinal adenopathy, FDG avid bilateral cervical level 4 lymph nodes, FDG avidity in the right supraclavicular & right level 5 lymph nodes, and a 9 mm subcutaneous implant overlying the left paraspinal muscles at L4. Radiation therapy plan: Palliative radiation therapy to a total dose of 30 Gy in 10 fractions in an effort to improve the patient's breathing, followed by systemic therapy per Dr. Ferguson. Radiotherapy to date: Course: RT Lung [id number], Treatment Site: R Lung 30Gy, Ref. ID: [id number], Energy: 15X, Dose/Fx (cGy): 300, #Fx: 2 / 10, Dose Correction (cGy): 0, Total Dose (cGy): 600, Start Date: 05/24/2020, Elapsed Days: 1 Reason for visit: The patient is being seen today as part of their regularly scheduled weekly on treatment visits to assess for acute toxicities from radiotherapy. Interim History: The patient reports no progressive shortness of breath, and he continues to have a moderate productive cough. Current Medications: Ambien, bevespi Aerosphere, lORazepam, metoprolol Succinate ER. Allergies: No Known Allergies Current Complaints/Review of Systems: Constitutional - Complains of moderate fatigue. Complains of night sweats which occur every night. Denies lack of appetite and fever. ENMT - Denies dysphagia. Cardiovascular - Denies chest pain and edema. Respiratory - Complains of a moderate cough which is productive. Complains of dyspnea associated with normal activity. Complains of wheezing. Denies hemoptysis. Physical Exam: Appears stable, no skin erythema or desquamation. . Lungs are clear but diminished on the right. Performance Status: 2 - Ambulatory/capable of all self-care, unable to perform any work activities. Up and about more than 50% of waking hours. (ECOG) Lab: None pending in Radiation Oncology. Test performed on 04/28/2020 12:25 PM WBC - 15.4 10 3/ul (high), MCV - 98.4 fl (high), Platelet Count - 546 10 3/cmm (high), Neutrophils - 12.30 10 3/ul (high), Monocytes - 1.2 10 3/ul (high), Chloride - 96 mmol/l (low), Anion Gap - 19.1 (high), Osmolality - Calculated - 284 mosm/kg (low), Albumin - 3.2 g/dl (low), ALT (SGPT) - 80 u/l (high), Alkaline Phosphatase - 256 iu/l (high), CA 19-9 - 190.2 u/ml (high) and CEA - 480.1 ng/ml (high). Imaging: Radiation therapy imaging related to accurate target localization (i.e. KV, MV and CBCT) was reviewed. Appropriate changes, if any, were made to ensure treatment accuracy. Plan: The patient is tolerating therapy reasonably well. Radiotherapy will continue as planned. CPT: 76614 Signed by: Dr. Lukas Rubio 05/25/2020 11:58:45 AM
== END 2020-05-31 11:30 | disposition home or self-care (01) ==
LOC: ONCMED 05:37
PROVIDERS: Internal Medicine Hematology & Oncology; Absent Provider Radiology Radiation Oncology; PCP Family Medicine; Visit Provider Radiology Radiation Oncology
DX: Z51.0 Encounter for antineoplastic radiation therapy (principal); C34.11 Malignant neoplasm of upper lobe, right bronchus or lung; C77.1 Secondary and unspecified malignant neoplasm of intrathoracic lymph nodes; J90 Pleural effusion, not elsewhere classified; R59.0 Localized enlarged lymph nodes; F17.210 Nicotine dependence, cigarettes, uncomplicated; I65.23 Occlusion and stenosis of bilateral carotid arteries
CPT/HCPCS: 36415; 70498; 77386; 80053; 81235; 85025; 88387; 99214; Q9967

== ENCOUNTER 2020-05-31 11:48 | Emergency (ER) | payer MEDICAID, SELFPAY ==
[2020-05-31] VITALS (11 sets, daily range): BP systolic 98–143; BP diastolic 62–90; PULSE 108–139; RESP 26–47; TEMP 36.8; O2SAT 93–98; BMI 25.0
--- NOTE | 2020-05-31 12:29 | XR_ITS ---
WS: [id number] XR chest 1V portable [id number] REASON FOR EXAM: SOB, h/o lung cancer and malignant pleural effusion FINDINGS: Significant interval progression of right lower chest opacification compared to previous examination of 04/23/2020. Presumed Roca catheter in place in the lower right pleural space. The left lung field remains relatively clear. There is mild shift of the mediastinal structures to the right. XR/XR chest 1V portable [id number] IMPRESSION: Increasing opacity in the right lower chest which in part is due to consolidati on/atelectasis in the right lung with volume loss and possibly increasing pleur al fluid.
--- NOTE | 2020-05-31 12:31 | ED_ITS ---
HPI - SOB/Dyspnea General: Chief Complaint: Shortness of Breath/Dyspnea Stated Complaint: Fluid on Lungs Time Seen by Provider: 05/31/20 12:15 Source: patient and family (daughter) Mode of arrival: ambulatory Limitations: no limitations History of Present Illness: HPI Narrative: Patient is a 59-year-old male with stage IV lung cancer and a history of malignant pleural effusion with a pleural window. According to the patient and his family they have been getting less and less out of the pleural window and the last time they drained was 2 days ago and got last done it tablespoon of fluid. The patient has been getting increasingly short of breath and was at his radiation therapy today when they told him to go to the emergency department due to fluid in his lungs. The patient was hypoxic on arrival to the emergency department with his oxygen saturation at 86% on room air. He was placed on oxygen at 2 L/min. MD elicited complaint: shortness of breath Onset (ago): day(s) Timing: constant and progressively worsening Severity: severe Exacerbating factors: nothing Relieving factors: nothing Associated symptoms: Reports cough and orthopnea; Deny abdominal pain, chest congestion, chest pain, diaphoresis, dizziness, extremity pain, fever(s), hemoptysis, lightheadedness, myalgias, nausea, palpitations, paresthesias, polydipsia, polyuria, rash, sense of impending doom, syncope or vomiting Treatment prior to arrival: none Review of Systems General: Reports: 10 or more systems reviewed and unremarkable except in HPI and below Const: Denies: fever(s) or diaphoresis Eyes: Denies: change in vision or blurry vision ENMT: Denies: throat pain, enlarged tonsils, odynophagia, hoarseness, mouth pain or swelling of lips/tongue Card: Reports: orthopnea; Denies: chest pain, palpitations, lightheadedness or syncope Resp: Denies: hemoptysis or chest congestion GI: Denies: abdominal pain, nausea or vomiting : Denies: flank pain, dysuria, urinary frequency, urinary urgency or urinary hesitancy Musc: Denies: extremity pain Skin/Breast: Denies: rash, pruritus or erythema Neuro: Denies: dizziness Endo: Denies: polyuria or polydipsia PFS ED PFSH: Medical History HTN (hypertension) Insomnia Sinus tachycardia Smoking ST segment depression Surgical History History of bronchoscopy History of thoracentesis Right, performed on 04/16/2020 Family History Father CAD (coronary artery disease) Social History Smoking and tobacco status: current every day smoker cigarettes Packs smoked per day: 1 Years cigarettes smoked: 25 [ Other cigarette details: Reports he is decreased to 2 to 3 cigarettes/day, previously reported 1 pack/day ] Quit status (tobacco): considering quitting Second hand smoke exposure: No Smoking risk assessment/counseling performed?: Yes Alcohol intake: never Lives independently: Yes Household members: none Marital status: Current occupational status: retired History of recent travel: No Current gender identity: Male Physical Exam Const: COMMON NORMALS: no acute distress, average body habitus, patient oriented x3, no limitations, healthy appearing, alert and well nourished HENMT: COMMON NORMALS: normocephalic, atraumatic and moist oral mucous membranes HEAD & SCALP: normocephalic and atraumatic Eye: COMMON NORMALS: Equal, round and reactive pupils present, EOMs intact bilaterally, conjunctivae normal and no scleral icterus CONJUNCTIVA: Yes conjunctivae normal PUPIL: Yes Equal, round and reactive pupils present Neck/C-Spine: COMMON NORMALS: no meningeal signs and no JVD Resp: COMMON NORMALS: No retractions and percussion normal EFFORT & INSPECTION: No able to speak in complete sentences, Yes tachypneic, Yes pursed lip breathing, Yes labored and Yes uses accessory muscles AUSCULTATION: diminished lung sounds PERCUSSION: percussion normal Cardio: COMMON NORMALS: no JVD, regular rhythm, S1 normal heart sound present, S2 normal heart sound present, No gallops present (Cardio), No clicks present (Cardio), No murmurs present (Cardio), No rub (Cardio) and Peripheral pulses 2+ throughout RATE: tachycardic RHYTHM: regular rhythm HEART SOUNDS: S1 normal heart sound present and S2 normal heart sound present PERIPHERAL PULSES: Peripheral pulses 2+ throughout GI: COMMON NORMALS: Normal to inspection, nondistended, normoactive bowel sounds present, Soft to palpation, non-tender, No hepatosplenomegaly present, no masses and no bruits PALPATION: Yes Soft to palpation and Yes No hepatosplenomegaly present Extremity: COMMON NORMALS: normal to inspection, full ROM, capillary refill normal, no calf tenderness and no pedal edema Neuro: COMMON NORMALS: patient oriented x3 SENSORIUM/ORIENTATION: Yes alert MENINGEAL SIGNS: Yes no meningeal signs Skin: COMMON NORMALS: no rashes or lesions noted, no wounds, turgor normal, no jaundice, no petechiae and no mottling GENERAL SKIN EXAM: no rashes or lesions noted and turgor normal Course ED course: This unfortunate 59-year-old gentleman with a history of advanced lung cancer with malignant pleural effusion comes to the emergency department from radiation oncology for increased shortness of breath and possible worsening effusion. On evaluation the patient was in respiratory distress with pleural effusion and extensive consolidative atelectasis and consolidation on the right. He needed increasing amounts of oxygen to maintain his saturation at acceptable levels. Had an extensive conversation with the patient's cissp Dr. Gutierrez who in turn discussed with the patient's oncologist and we had a conversation with the family and the patient. Discussed goals of care, prognosis, and the patient and his family agreed that he should go on hospice care. Hospice care was arranged for the patient and he was discharged home. Consultations: Consultation #1: Discussed the patient with Dr. Valencia, and Dr. Gutierrez, pulmonologists. Vital Signs: Vital signs: Vital Signs Temperature 98.3 F 05/31/20 11:51 Pulse Rate 128 H 05/31/20 19:05 Respiratory Rate 40 H 05/31/20 19:05 Blood Pressure 98/62 05/31/20 19:05 Pulse Oximetry 98 05/31/20 19:05 MDM - SOB/Dyspnea MDM Narrative: Medical decision making narrative: 59-year-old male with advanced right lung cancer who came into the emergency department in respiratory distress. He was tachypneic, hypoxic, and has worsening findings on his right lung imaging. After discussion with his specialists including cissp and oncologist the patient and his family decided that it was time for hospice care for him. Hospice care was arranged for him and he was discharged home. Lab Data: Labs: Lab Results 05/31/20 05/31/20 05/31/20 Range/Units 12:55 12:55 12:55 WBC 10.3 H (4.0-10.0) 10^3/ uL RBC 3.91 L (4.1-5.3) 10^6/u L Hgb 11.7 (11.7-16.6) g/dL Hct 38.1 L (42.0-52.0) % MCV 97.4 H (80-94) fL MCH 29.9 (28.0-34.0) pg MCHC 30.7 (30.0-36.0) g/dL RDW 15.1 (12.1-15.1) % Plt Count 404 H (130-400) 10^3/c mm MPV 9.6 (7.4-10.4) fL Neut % (Auto) 83.5 % Lymph % (Auto) 6.2 % [place] % (Auto) 9.2 % Eos % (Auto) 0.1 % Baso % (Auto) 0.4 % Neut # (Auto) 8.56 H (1.8-7.7) 10^3/u L Lymph # (Auto) 0.6 L (0.8-4.8) 10^3/u L [place] # (Auto) 0.9 (0.2-0.9) 10^3/u L Eos # (Auto) 0.0 (0.0-0.8) 10^3/u L Baso # (Auto) 0.0 (0.0-0.1) 10^3/u L Nucleated RBC % (a uto) 0 % Nucleated RBCs # 0.0 /100WBC Specimen Type Sample Site ABG pH (7.35-7.45) ABG pCO2 (35-45) mmHg ABG pO2 (80.0-100.0) mmH g ABG HCO3 (22-26) mmol/L ABG Base Excess (-2.0-2.0) mmol/ L Jero Test Hematocrit (42-52) % Hgb O2 Saturation (95-100) % Carboxyhemoglobin (0.4-20.1) %THgb Methemoglobin (0.4-1.5) % Total Hemoglobin (14-18) g/dL O2 Delivery Device O2 Liters/Min % Check Writing Machine Operator ID Sodium 140 (136-145) mmol/L Potassium 4.2 (3.5-5.1) mmol/L Chloride 97 L (98-107) mmol/L Carbon Dioxide 29 (22-29) mmol/L Anion Gap 18.2 (5-19) BUN 23 (8-23) mg/dL Creatinine 0.5 L (0.7-1.2) mg/dL GFR Calculation 169.6 H (90-130) mL/min Glucose 95 (65-115) mg/dL Calculated Osmolal ity 293 (285-295) mOsm/k g Calcium 9.5 (8.5-10.5) mg/dL Total Bilirubin 0.4 (0.15-1.2) mg/dL AST 23 (0-40) U/L ALT 22 (0-41) U/L Alkaline Phosphata se 150 H (40-130) IU/L Troponin T Baselin e 17 H (0-15) ng/L Total Protein 7.1 (6.6-8.7) g/dL Albumin 3.1 L (3.5-5.2) g/dL Globulin 4.0 (1.3-4.6) g/dL 05/31/20 Range/Units 13:20 WBC (4.0-10.0) 10^3/ uL RBC (4.1-5.3) 10^6/u L Hgb (11.7-16.6) g/dL Hct (42.0-52.0) % MCV (80-94) fL MCH (28.0-34.0) pg MCHC (30.0-36.0) g/dL RDW (12.1-15.1) % Plt Count (130-400) 10^3/c mm MPV (7.4-10.4) fL Neut % (Auto) % Lymph % (Auto) % [place] % (Auto) % Eos % (Auto) % Baso % (Auto) % Neut # (Auto) (1.8-7.7) 10^3/u L Lymph # (Auto) (0.8-4.8) 10^3/u L [place] # (Auto) (0.2-0.9) 10^3/u L Eos # (Auto) (0.0-0.8) 10^3/u L Baso # (Auto) (0.0-0.1) 10^3/u L Nucleated RBC % (a uto) % Nucleated RBCs # /100WBC Specimen Type Arterial Sample Site Radial, right ABG pH 7.45 (7.35-7.45) ABG pCO2 43.5 (35-45) mmHg ABG pO2 65.6 L (80.0-100.0) mmH g ABG HCO3 30.0 H (22-26) mmol/L ABG Base Excess 5.3 H (-2.0-2.0) mmol/ L Jero Test Pos Hematocrit 35.3 L (42-52) % Hgb O2 Saturation 90.2 L (95-100) % Carboxyhemoglobin 3.4 (0.4-20.1) %THgb Methemoglobin 0.7 (0.4-1.5) % Total Hemoglobin 11.5 L (14-18) g/dL O2 Delivery Device Nc O2 Liters/Min 2.0 % Check Writing Machine Operator ID Broma Sodium (136-145) mmol/L Potassium (3.5-5.1) mmol/L Chloride (98-107) mmol/L Carbon Dioxide (22-29) mmol/L Anion Gap (5-19) BUN (8-23) mg/dL Creatinine (0.7-1.2) mg/dL GFR Calculation (90-130) mL/min Glucose (65-115) mg/dL Calculated Osmolal ity (285-295) mOsm/k g Calcium (8.5-10.5) mg/dL Total Bilirubin (0.15-1.2) mg/dL AST (0-40) U/L ALT (0-41) U/L Alkaline Phosphata se (40-130) IU/L Troponin T Baselin e (0-15) ng/L Total Protein (6.6-8.7) g/dL Albumin (3.5-5.2) g/dL Globulin (1.3-4.6) g/dL Imaging Data^: CTA Chest: Attestation: I personally reviewed and interpreted this imaging study as follows: Radiologist's impression: [address] [address] [address] Scan Report Signed Patient: Eufemia Aaron #: [id number] : 1960Acct#:[id number] Age/Sex: 59 / MADM Date: 05/31/20 Loc: ERRoom/Bed: Attending Dr: Ordering Provider/Ordering MD: Dc Philippe MD, ETHAN Date of Service: 05/31/20 Procedure(s): CT angio chest PE protcl [id number] Accession Number(s): [id number] Report Number: [id number] WS: [id number] CTA OF THE CHEST WITH PULMONARY EMBOLISM PROTOCOL TECHNIQUE: High-resolution contrast enhanced CTA of the chest with coronal and sagittal reformatted images with pulmonary embolism protocol. MIP images are also reviewed. CLINICAL INFORMATION: SOB COMPARISON: CT April 24, 2020 and PET/CT May 08, 2020 DLP: 562.[address] scans at [facility] use at least one of these dose optimization techniques: automated exposure control; mA and/or kV adjustment per patient size (includes targeted exams where dose is matched to clinical indication); or iterative reconstruction. FINDINGS: Prior postoperative changes in the right hemithorax with right pleural drain in place. Moderate right pleural effusion with compressive atelectasis right lower lobe and right middle lobe with collapse. Consolidative airspace opacities in right upper lobe. Extensive right pleural thickening consistent with pleural met astatic disease. Left lung is well aerated. Chronic emphysematous changes in the left lung. Right lower lobe consolidation has increased since the prior examinations. Diffuse soft tissue thickening involving the right hilum and adjacent anterior mediastinum consistent with metastatic disease. Anterior mediastinal lymphadenopathy has progressed since the prior examinations. Diffuse soft tissue thickening about the right mainstem bronchus and right hilum with narrowing of the right mainstem bronchus. Supraclavicular lymphadenopathy. Proximal main pulmonary arteries are patent. Segmental and subsegmental pulmonary arteries are patent. Mild narrowing of the right main pulmonary artery and right segmental and subsegmental arteries due to consolidation. No filling defects to indicate pulmonary embolus. Normal caliber thoracic aorta. Adrenal glands appear normal. CT/CT angio chest PE protcl [id number] IMPRESSION: 1. Right pleural drain with moderate right pleural effusion. Right lower lobe and right middle lobe consolidative atelectasis progressed since the prior examinations. Diffuse subtotal airspace consolidation right upper lobe. 2. Soft tissue thickening involving the right hilum with metastatic soft tissue thickening and lymphadenopathy in the anterior mediastinum. 3. Diffuse pleural soft tissue thickening and metastatic disease. 4. Left lung is well aerated. 5. No evidence of pulmonary embolus. Dictated By:Jesse Whatley MD Signed By:Jesse Whatley MDSigned Date/Time:05/31/20 1501 DD/ 1448 CXR: Attestation: I personally reviewed and interpreted this imaging study as follows: Radiologist's impression: [address] [address] XRay Report Signed Patient: Eufemia Aaron #: [id number] : 1960Acct#:[id number] Age/Sex: 59 / MADM Date: 05/31/20 Loc: ERRoom/Bed: Attending Dr: Ordering Provider/Ordering MD: Dc Philippe MD, [facility] [place] Date of Service: 05/31/20 Procedure(s): XR chest 1V portable [id number] Accession Number(s): [id number] Report Number: [id number] WS: [id number] XR chest 1V portable [id number] REASON FOR EXAM: SOB, h/o lung cancer and malignant pleural effusion FINDINGS: Significant interval progression of right lower chest opacification compared to previous examination of 04/23/2020. Presumed Tao catheter in place in the lower right pleural space. The left lung field remains relatively clear. There is mild shift of the mediastinal structures to the right. XR/XR chest 1V portable [id number] IMPRESSION: Increasing opacity in the right lower chest which in part is due to consolidation/atelectasis in the right lung with volume loss and possibly increasing pleural fluid. Dictated By:Rodriguez Segundo Jr, MD Signed By:Rodriguez Segundo Jr MDSigned Date/Time:05/31/20 1325 DD/ 1321 EKG Data^: EKG 1: Attestation: I personally reviewed and interpreted this EKG as follows: EKG Interpretation Date: 05/31/20 EKG interpretation time: 13:00 Prior EKG tracings: not available for review Interpretation: Sinus tachycardia with short [place] interval. Heart rate [address] depression in lead II EKG 2: Attestation: I personally reviewed and interpreted this EKG as follows: EKG Interpretation Date: 05/31/20 EKG interpretation time: 15:29 Prior EKG tracings: available for review Interpretation: Sinus tachycardia with short [place] interval. Heart rate [address] depression in lead II. Unchanged from earlier today. Discharge Plan Discharge Patient Disposition: Hospice - Home Clinical Impression: Terminal illness Acute respiratory failure Qualifiers: Respiratory failure complication: hypoxia Qualified Code(s): J96.01 - Acute respiratory failure with hypoxia Metastatic primary lung cancer Qualifiers: Laterality: right Qualified Code(s): C34.91 - Malignant neoplasm of unspecified part of right bronchus or lung Condition: Stable Prescriptions: Continued alprazolam 0.5 mg tablet 0.5 mg PO DAILY PRN (Reason: anxiety) Qty: 30 RF: 0 Bevespi Aerosphere 9-4.8 mcg HFA aerosol inhaler 2 puff INHALATION BID Qty: 10.7 RF: 3 metoprolol succinate 50 mg tablet extended release 24 hr 50 mg PO DAILY 30 Days Qty: 30 RF: 2 ibuprofen 400 mg Tablet 400 mg PO Q6H PRN (Reason: headache) RF: 0 Ativan 0.5 mg Tablet See Rx Instructions .ROUTE .COMPLEX PRN (Reason: Shortness Of Breath) RF: 0 Ambien 10 mg tablet 10 mg PO BEDTIME RF: 0 Discharge Orders: Discharge Order (Routine); Ordered 05/31/20 Ordered By: Dc Philippe Referrals: Cielo Dubose MD [Primary Care Provider] - None (as needed) Discharge Diet: Usual diet Discharge Activity: Increase activity as tolerated Patient Instructions: Hospice Care, Lung Cancer (ED) Activity Restrictions/Additional Instructions: Continue management as outlined by hospice care. Coding Level of Care Code ED Gore Stitcher for Chg Fwd Exam Comprehensive
--- NOTE | 2020-05-31 12:49 | ECG_ITS ---
[facility] Test Date: 2020-05-31 Pat Name: Soren Aaron Department: Room: Gender: Male Telephone Operator: : 1960 Requested By: Dc Philippe I Order Number: [id number] Jcarlos MD: Stella Key M.D. Measurements Intervals [place] Rate: 159 P: 74 GA: 102 QRS: 75 QRSD: 77 T: 60 QT: 285 QTc: 464 Interpretive Statements SINUS TACHYCARDIA WITH SHORT GA INTERVAL, POSSIBLE ATRIAL FLUTTER MINIMAL ST DEPRESSION [0.025+ mV ST DEPRESSION] Compared to ECG 04/23/2020 11:43:11 ST (T wave) deviation now present Electronically Signed On 05-31-2020 18:44:47 TECHNOLOGY DIRECTOR by Stella Key M.D. [id number]
[2020-05-31 13:15] LABS: Basophils % 0.4 %; Eosinophils % 0.1 %; Hematocrit 38.1 % (42.0-52.0); Hemoglobin 11.7 g/dL (11.7-16.6); Lymphocytes # 0.6 10^3/uL (0.8-4.8); Lymphocytes % 6.2 %; Mean Corpuscular HGB Conc 30.7 g/dL (30.0-36.0); Mean Corpuscular Hemoglobin 29.9 pg (28.0-34.0); Mean Corpuscular Volume 97.4 fL (80-94); Mean Platelet Volume 9.6 fL (7.4-10.4); Monocytes # 0.9 10^3/uL (0.2-0.9); Monocytes % 9.2 %; Neutrophils # 8.56 10^3/uL (1.8-7.7); Neutrophils % 83.5 %; Nucleated Red Blood Cells % 0 %; Platelet Count 404 10^3/cmm (130-400); Red Blood Count 3.91 10^6/uL (4.1-5.3); Red Cell Distribution Width 15.1 % (12.1-15.1); White Blood Count 10.3 10^3/uL (4.0-10.0)
[2020-05-31] MEDS: metoprolol tartrate 1 mg/1 mL SDV 5 mL 5 MG IV (13:29)
[2020-05-31 13:32] LABS: ABG PCO2 43.5 mmHg (35-45); ABG PH Result 7.45 (7.35-7.45); Arterial Blood Gas Hematocrit 35.3 % (42-52); Base Excess ABG 5.3 mmol/L (-2.0-2.0); Blood Gas Allen Test Pos; Blood Gas Operator Identificat BROMA; Blood Gas Sample Site Radial, right; Blood Gas Sample Type Arterial; Carboxyhemoglobin 3.4 %THgb (0.4-20.1); HGB O2 Sat 90.2 % (95-100); Methemoglobin 0.7 % (0.4-1.5); PO2 ABG 65.6 mmHg (80.0-100.0); Total Hemoglobin 11.5 g/dL (14-18)
[2020-05-31 13:33] LABS: Oxygen Device NC
[2020-05-31 13:44] LABS: Alanine Aminotransferase 22 U/L (0-41); Albumin Level 3.1 g/dL (3.5-5.2); Alkaline Phosphatase 150 IU/L (40-130); Anion Gap 18.2 (5-19); Aspartate Amino Transferase 23 U/L (0-40); Blood Urea Nitrogen 23 mg/dL (8-23); Calcium 9.5 mg/dL (8.5-10.5); Carbon Dioxide 29 mmol/L (22-29); Chloride 97 mmol/L (98-107); Glomerular Filtration Rate 169.6 mL/min (90-130); Glucose 95 mg/dL (65-115); Osmolality Calculated 293 mOsm/kg (285-295); Potassium 4.2 mmol/L (3.5-5.1); Sodium 140 mmol/L (136-145); Total Bilirubin 0.4 mg/dL (0.15-1.2); Total Protein 7.1 g/dL (6.6-8.7)
--- NOTE | 2020-05-31 13:54 | CT_ITS ---
WS: [id number] CTA OF THE CHEST WITH PULMONARY EMBOLISM PROTOCOL TECHNIQUE: High-resolution contrast enhanced CTA of the chest with coronal and sagittal reformatted i mages with pulmonary embolism protocol. MIP images are also reviewed. CLINICAL INFORMATION: SOB COMPARISON: CT April 24, 2020 and PET/CT May 08, 2020 DLP: 562.[address] scans at [facility] use at least one of these dose optimization techniques: automat ed exposure control; mA and/or kV adjustment per patient size (includes targeted exams where dose is matched to clinical indication); or iterative reconstruction. FINDINGS: Prior postoperative changes in the right hemithorax with right pleural drain in place. Moderate right pleural effusion with compressive atelectasis right lower lobe and right middle lobe with collapse. Consolidative airspace opacities in right upper lobe. Extensive right pleural thickening consistent w ith pleural metastatic disease. Left lung is well aerated. Chronic emphysematous changes in the left lung. Right lower lobe consolidation has increased since the prior examinations. Diffuse soft tissue thicke marquita involving the right hilum and adjacent anterior mediastinum consistent with metastatic disease. Anterior mediastinal lymphadenopathy has progressed since the prior examinations. Diffuse soft tissue thickening about the right mainstem bronchus and right hilum with narrowing of the right mainstem br onchus. Supraclavicular lymphadenopathy. Proximal main pulmonary arteries are patent. Segmental and subsegmental pulmonary arteries are patent . Mild narrowing of the right main pulmonary artery and right segmental and subsegmental arteries due to consolidation. No filling defects to indicate pulmonary embolus. Normal caliber thoracic aorta. A drenal glands appear normal. CT/CT angio chest PE protcl [id number] IMPRESSION: 1. Right pleural drain with moderate right pleural effusion. Right lower lobe and right middle lobe consolidative atelectasis progressed since the prior exam inations. Diffuse subtotal airspace consolidation right upper lobe. 2. Soft tissue thickening involving the right hilum with metastatic soft tissu e thickening and lymphadenopathy in the anterior mediastinum. 3. Diffuse pleural soft tissue thickening and metastatic disease. 4. Left lung is well aerated. 5. No evidence of pulmonary embolus.
[2020-05-31 14:25] LABS: Troponin(5th) Baseline 17 ng/L (0-15)
[2020-05-31] MEDS: iohexol 350 mg/mL 100 mL Btl IV (14:26)
--- NOTE | 2020-05-31 14:49 | ECG_ITS ---
[facility] Test Date: 2020-05-31 Pat Name: Soren Aaron Department: Room: Gender: Male Fundraising Coordinator: : 1960 Requested By: Dc Philippe I Order Number: [id number] Jcarlos MD: Stella Key M.D. Measurements Intervals [place] Rate: 135 P: 67 MT: 117 QRS: 48 QRSD: 81 T: 49 QT: 290 QTc: 436 Interpretive Statements SINUS TACHYCARDIA WITH SHORT MT INTERVAL WITH FREQUENT SUPRAVENTRICULAR PREMATURE COMPLEXES ABNORMAL RHYTHM ECG Compared to ECG 05/31/2020 12:59:57 ST (T wave) deviation no longer present Electronically Signed On 05-31-2020 23:49:05 MICROSOFT WINDOWS ENGINEER by Stella Key M.D. [id number]
--- NOTE | 2020-05-31 21:57 | PM.CONSULT ---
Providers/Reason For Consult Consulting Physican/Specialty*: Gil Gutierrez M.D/Pulmonary Reason for Consult*: worsening respiratory function with metastatic lung ca Requesting Physcian: Dc Philippe Primary Care Provider: Cielo Dubose MD History of Present Illness History of Present Illness Soren Aaron is a 59 year old male with a recent diagnosis of stage IV lung cancer and a history of malignant pleural effusion with Pleurx catheter in place, currently receiving radiotherapy, while awaiting tumor markers to start chemotherapy. The patient has been getting increasingly short of breath and was at his radiation therapy today when they told him to go to the emergency department due to fluid in his lungs. The patient was hypoxic on arrival to the emergency department with his oxygen saturation at 86% on room air. He was placed on oxygen at 2 L/min and later increased to 8 L/min. Also complained of ongoing fatigue and decreased appetite. CT angiogram done in ED today showed right pleural drain with moderate right pleural effusion. Right lower lobe and right middle lobe consolidative atelectasis progressed since the prior examinations. Diffuse subtotal airspace consolidation right upper lobe. Soft tissue thickening involving the right hilum with metastatic soft tissue thickening and lymphadenopathy in the anterior mediastinum. Diffuse pleural soft tissue thickening and metastatic disease. No PE and left lung well aerated. Pulmonary consulted for evaluation and further management. Review of Systems General: Reports: 10 or more systems reviewed and unremarkable except in HPI and below Meds/Allergies Home Medications and Allergies Home Medications Medication Instructions Recorded Confirmed Last Taken Type glycopyrrolate 9 mcg-formoterol 2 puff INHALATION BID #10.7 gm 04/08/20 05/31/20 05/31/20 Rx 4.8 mcg HFA aerosol inhaler ibuprofen 400 mg PO Q6H PRN 04/23/20 05/31/20 05/31/20 History alprazolam 0.5 mg tablet 0.5 mg PO DAILY PRN #30 tab 05/05/20 05/31/20 05/30/20 Rx metoprolol succinate 50 mg 50 mg PO DAILY 30 Days #30 tab 05/26/20 05/31/20 05/31/20 Rx tablet,extended release 24 hr Ambien 10 mg PO BEDTIME 05/31/20 05/31/20 05/30/20 History Ativan See Rx Instructions .ROUTE 05/31/20 05/31/20 05/31/20 History .COMPLEX PRN Allergies Allergy/AdvReac Type Severity Reaction Status Date / Time No Known Allergies Allergy Verified 05/31/20 12:01 PFSH Acute PFSH: Medical History HTN (hypertension) Insomnia Sinus tachycardia Smoking ST segment depression Surgical History History of bronchoscopy History of thoracentesis Right, performed on 04/16/2020 Family History Father CAD (coronary artery disease) Social History Smoking and tobacco status: current every day smoker cigarettes Packs smoked per day: 1 Years cigarettes smoked: 25 [ Other cigarette details: Reports he is decreased to 2 to 3 cigarettes/day, previously reported 1 pack/day ] Quit status (tobacco): considering quitting Second hand smoke exposure: No Smoking risk assessment/counseling performed?: Yes Alcohol intake: never Lives independently: Yes Household members: none Marital status: Current occupational status: retired History of recent travel: No Current gender identity: Male Vitals/I&O/Wt Last Vital Signs Temp 98.3 F 05/31/20 11:51 Pulse 128 H 05/31/20 19:05 Resp 40 H 05/31/20 19:05 BP 98/62 05/31/20 19:05 Pulse Ox 98 05/31/20 19:05 Weight last 48 hrs Weight 165 lb Physical Exam Narrative: EXAM NARRATIVE: General: alert, cachectic male, on 8 L nasal cannula in moderate respiratory distress HEENT: conj clear, EOMI, PERRL, mmm, Neck: supple, no meningismus Heme: no cervical LAP Pulmonary: Right Pleurx catheter in place, only clean reduced breath sounds on right side with mild crackles Cardiovascular: rrr, nl s1s2, no mrg Abdomen: soft, nt, nd, no r/g, bs+ Extremities: pulses +, no edema, no c/c : no CVA tenderness Skin: intact, no rash MSK: no back or neck pain Neurologic: grossly intact Data Other Data: Other data: CTA 05/31/2020: 1. Right pleural drain with moderate right pleural effusion. Right lower lobe and right middle lobe consolidative atelectasis progressed since the prior examinations. Diffuse subtotal airspace consolidation right upper lobe. 2. Soft tissue thickening involving the right hilum with metastatic soft tissue thickening and lymphadenopathy in the anterior mediastinum. 3. Diffuse pleural soft tissue thickening and metastatic disease. 4. Left lung is well aerated. 5. No evidence of pulmonary embolus. A&P Assessment and plan (1) Acute respiratory failure: Status: Acute Qualifiers: Respiratory failure complication: hypoxia Qualified Code(s): J96.01 - Acute respiratory failure with hypoxia (2) Metastatic primary lung cancer: Status: Acute Qualifiers: Laterality: right Qualified Code(s): C34.91 - Malignant neoplasm of unspecified part of right bronchus or lung (3) Terminal illness: Status: Acute (4) Recurrent pleural effusion on right: Status: Acute (5) COPD (chronic obstructive pulmonary disease): Status: Acute Qualifiers: COPD type: unspecified COPD Qualified Code(s): J44.9 - Chronic obstructive pulmonary disease, unspecified #Acute hypoxic respiratory failure requiring higher FiO2 currently on 8 L nasal cannula #Worsening respiratory status likely due to worsening lung cancer cannot rule out radiation pneumonitis #Underlying metastatic primary NSCLC recently diagnosed s/p palliative radiation started 05/24/2020 #Awaiting tumor markers to start chemotherapy #Recurrent loculated malignant pleural effusion-s/p Pleurx catheter -CT showed progressing consolidation in RLL and RML and diffuse subtotal airspace consolidation of RUL-soft tissue thickening involving the right hilum with metastatic soft tissue thickening and lymphadenopathy in mediastinum. Diffuse pleural soft tissue thickening and metastatic disease -After reviewing the CT discussed the findings with oncologist Dr. Ferguson -Worsening respiratory status requiring higher oxygen in a patient with rapidly advancing metastatic lung cancer and developing new interstitial changes on CT suggestive of possible radiation pneumonitis and loculated pleural effusion with already Pleurx in place not draining much and the fact that response to chemotherapy for NSCLC is not great -explained in detail with patient Mr. Soren Aaron and his 2 daughters at bedside about the poor prognosis and opened up discussion for goals of care including full aggressive care with possible futility or even ending up in long-term vegetative state, or do not escalate care or hospice/comfort care. After taking time to discuss his wishes with his daughters, patient expressed to be on hospice/comfort care at home. -Patient wishes were conveyed to ER physician taking care of the patient. ED physician agreed to confirm himself with patient and family and assured to work with ED social work to arrange for home hospice for the patient. Consult Attestations Medical Necessity Statement: Acute respiratory failure with worsening oxygen requirements in a patient with a primary metastatic non-small cell lung cancer, recurrent pleural effusion, loculated with Pleurx catheter in place,. Patient opted for comfort care Time Spent in Patient Care: Greater than 35 minutes (>than 50% of time spent in counselling and/or direct pt care on unit). Coding Level of Care Code New Pt Acute [employer] for [employer] [facility] Patient Type New History Comprehensive Exam Comprehensive Medical Decision Making High Complexity Diagnoses Acute respiratory failure J96.01 Respiratory failure complication: hypoxia Metastatic primary lung cancer C34.91 Laterality: right Terminal illness R69 Recurrent pleural effusion on right J90 COPD (chronic obstructive pulmonary disease) J44.9 COPD type: unspecified COPD Time Spent (min) 45
== END 2020-05-31 19:06 | disposition hospice, home (50) ==
PROVIDERS: Emergency Provider Family Medicine; PCP Family Medicine
DX: J96.01 Acute respiratory failure with hypoxia (principal); C34.91 Malignant neoplasm of unspecified part of right bronchus or lung; I10 Essential (primary) hypertension; F17.210 Nicotine dependence, cigarettes, uncomplicated
CPT/HCPCS: 12345; 36600; 71045; 71275; 80053; 82805; 84484; 85025; 93005; 96374; 99283; 99284; J3490; Q9967

== ENCOUNTER 2020-06-03 06:00 | Outpatient (RCR) | payer MEDICAID, SELFPAY | END 2020-06-21 23:59 | disposition home or self-care (01) | LOC: ONCMED 06:00 | PROVIDERS: Absent Provider Radiology Radiation Oncology; PCP Family Medicine; Visit Provider Radiology Radiation Oncology | DX: Z76.89 Persons encountering health services in other specified circumstances (principal) | CPT/HCPCS: 77336 ==